=== PATIENT | female | born 1980 | race Caucasian/White ===

== ENCOUNTER 2016-11-20 20:07 | Emergency (ER) | payer OTHER ==
--- NOTE | 2016-11-20 21:47 | DIAGNOSTIC IMAGING REPORT ---
PROCEDURE: XR CHEST 2 VIEW INDICATION: SHORTNESS OF BREATH TECHNIQUE: PA and lateral views. The patient was shielded. COMPARISON: None. FINDINGS: Mild parenchymal scarring at the left lung base. Lungs are otherwise clear. Heart and mediastinum are normal. Thorax is normal. IMPRESSION: 1. Negative chest.
--- NOTE | 2016-11-20 22:14 | ED NURSING NOTES ---
Clinical Report - Nurses [facility] [place] [address] 11/20/2016 20:08 [id number] Triage time 20:12 Nov 20 2016. Acuity: LEVEL 4. Chief Complaint: (flu symptoms). 20:16 11/20/16. ANDRES COMA SCORE: Andres Coma Scale: 15- eyes open spontaneously (4); best verbal response- oriented x 4 (5); best motor response- obeys commands (6). --20:16 Rosalba Subramanian R.N. 20:16 11/20/16. BP: 120/76. HR: 124. RR: 20. O2 saturation: 97%. Temp: 97.9 F. --20:16 Rosalba Subramanian R.N. Weight: 58.9 kg stated. Height/Length: 63 inches Per Patient. BMI: 23. --20:10 Rosalba Subramanian R.N. Medications None. --20:14 Rosalba Subramanian R.N. Allergies Amoxicillin. --20:14 Rosalba Subramanian R.N. Medication/allergy information source: the patient. --20:16 Rosalba Subramanian R.N. History Arrived by private vehicle, and accompanied by family. Onset. (3 weeks). ( just not getting any better). PAST MEDICAL HX: Last normal menstrual period was 2 weeks ago. 5. Para 3. Abortions 2. Has not received seasonal influenza immunization. SOCIAL HX: Heavy tobacco smoker (cigarette)- 1 pack per day. Regular alcohol use. No drug use. No infectious disease exposure. ABUSE ASSESSMENT: No report of abuse. SELF HARM ASSESSMENT: A self harm assessment was performed. The patient answered "no" to the question "Have you recently felt down, depressed, or hopeless?", "Have you noticed less interest or pleasure in doing things?", "Do you have thoughts of harming or killing yourself?", "Are you here because you tried to hurt yourself?", "Have you ever tried to hurt yourself before today?", "Have you recently had thoughts about harming or killing others?" and "Do you have any dangerous items in your possession?". NUTRITIONAL RISK ASSESSMENT: The nutritional risk assessment revealed no deficiencies. FUNCTIONAL ASSESSMENT: Functional assessment: no impairments noted. LEARNING NEEDS ASSESSMENT: The learning needs assessment revealed no barriers. SKIN INTEGRITY ASSESSMENT: Skin integrity risk assessment completed. No skin integrity risk identified. --20:16 Rosalba Subramanian R.N. PROBLEMS: Lifestyle / Substance Problems. --20:15 Rosalba Subramanian R.N. ADDITIONAL SURGERIES: . Laparoscopy. Tonsillectomy. --20:15 Rosalba Subramanian R.N. Interventions ID band on patient. --20:16 Rosalba Subramanian R.N. PHYSICAL ASSESSMENT 20:20 11/20/16. GENERAL / NEURO / PSYCH: Alert. Oriented X 4. Appears in no acute distress. HEENT: Pupils equal, round and reactive to light. Mucous membranes are pink. RESPIRATORY: Breath sounds within normal limits. CVS: Pulses within normal limits. GI / : Abdomen soft. SKIN: Skin intact. Skin is warm and dry. Normal skin turgor. --20:38 Rosalba Subramanian R.N. NURSING PROGRESS NOTES 20:15 11/20/16. The initial plan of care for this patient includes an assessment with efforts to address the presence of pain. This plan of care was discussed with the patient. Patient gowned. Reassurance given. Patient identifiers checked. Call light placed in reach. Side rails up x 1. Bed placed in lowest position. Brakes of bed on. Care transferred. --20:33 Rosalba Subramanian R.N. 20:25 11/20/16. Patient ID band checked for patient name and birthdate: patient confirmed. Flu swab obtained by RN via nasal swab. Labeled in the presence of the patient and sent to lab. --20:33 Rosalba Subramanian R.N. 21:49 11/20/16. The patient is calm and resting quietly. Overall patient status is the same- she states feels the same. GI / : Denies nausea. SKIN: Skin is warm. Skin color within normal limits. --21:49 Rosalba Subramanian R.N. DISPOSITION / DISCHARGE 22:28 11/20/16. Condition at departure: improved and stable. The goals identified in the patient's plan of care were met. No learning barriers present. Reviewed medication(s) side effects, precautions, dosing and course information. Prescription(s) given to the patient. Reviewed fever care instructions. Reviewed referral to a primary care physician for followup and immunizations. Patient verbalized understanding. Written instructions provided in Maltese. The patient was discharged home and accompanied by family. She left the Emergency Department ambulatory and via private vehicle. Family member driving. FALL RISK ASSESSMENT: Fall risk assessment completed. No fall risk identified. --22:28 Rosalba Subramanian R.N. 22:28 11/20/16. BP: 120/70. HR: 88. RR: 18. O2 saturation: 100%. Temp: 98.2 F. Pain level now 0/10. --22:28 Rosalba Subramanian R.N. Departure time: 22:28 Nov 20 2016. --22:28 Rosalba Subramanian R.N. Locked/Released at 11/20/2016 22:28 by Rosalba Subramanian R.N.
--- NOTE | 2016-11-20 22:14 | ED CLINICAL REPORT ---
Clinical Report - Physicians/Mid Levels [facility] [address] [place] [address] 11/20/2016 20:08 Patient: ALANA DIANA Time Seen: 20:29. Arrived- By private vehicle. Historian- patient. CPT: ER phys charges level 3 (#[id number]). HISTORY OF PRESENT ILLNESS Chief Complaint: COUGH and "FLU". This started several weeks ago; Last normal menstrual period was 2 weeks ago. 5. Para 3. Abortions 2. Has not received seasonal influenza immunization. and is still present. The illness is described as moderate. The patient has had a cough. She has had moderate amounts of yellow, green sputum. No fever, muscle aches, chills, sore throat or hoarseness. No nasal congestion or sinus drainage. Additional history - No known contact with a sick individual. Similar symptoms previously: None. Recent medical care: Not recently seen/assessed. REVIEW OF SYSTEMS No headache, nausea, vomiting, diarrhea or abdominal pain. No hay fever, pedal edema, calf pain, difficulty with urination or skin rash. No joint pain. Denies current . All systems otherwise negative, except as recorded above. PAST HISTORY Last normal menstrual period was 2 weeks ago. 5. Para 3. Abortions 2. Has not received seasonal influenza immunization. ADDITIONAL SURGERIES: . Laparoscopy. Tonsillectomy. Medications: None. Allergies: Amoxicillin. SOCIAL HISTORY Heavy tobacco smoker (cigarette)- 1 pack per day. Regular alcohol use. No drug use. ADDITIONAL NOTES The nursing notes have been reviewed. PHYSICAL EXAM Vital Signs: 11/20/2016 20:16 BP: 120/76. HR: 124. RR: 20. O2 saturation: 97%. Temp: 97.9 F. Appearance: Alert. No acute distress. Eyes: Pupils equal, round and reactive to light. Eyes normal inspection. ENT: Ears normal. Nose normal. Pharynx normal. Uvula midline. Neck: Normal inspection. Neck supple. CVS: Normal heart rate and rhythm. Heart sounds normal. Pulses normal. Respiratory: No respiratory distress. Breath sounds normal. Back: Normal inspection. Skin: Skin warm. Normal skin color. No rash. Normal skin turgor. Extremities: Extremities exhibit normal ROM. No calf tenderness. No lower extremity edema. Neuro: Oriented X 3. No motor deficit. No sensory deficit. LABS, X-RAYS, AND EKG Chest X-ray: Normal Chest X-Ray. Laboratory Tests: Rapid Influenza Screen: (DOUG: 11/20/2016 20:15) ( MsgRcvd 11/20/2016 20:51) Final results SPECIMEN DESCRIPTION: [employer] Test Result Flag Units (Reference) RAPID INFLUENZA SCREEN DATE: 11/20/16 INFLUENZA A: NEGATIVE SCREEN FOR INFLUENZA A INFLUENZA B: NEGATIVE SCREEN FOR INFLUENZA B . PROGRESS AND PROCEDURES Patient/family counseled. Disposition: Discharged. Condition: stable. CLINICAL IMPRESSION Acute bacterial mucopurulent bronchitis. INSTRUCTIONS No strenuous activity. Rest. Drink plenty of fluids. Do not smoke. Warnings: Further evaluation is necessary. GENERAL WARNINGS: Return or contact your physician immediately if your condition worsens or changes unexpectedly, if not improving as expected, or if other problems arise. Prescription Medications: Albuterol HFA oral inhaler: inhale 2 puffs via spacer every 4 hours as needed for difficulty breathing, until symptoms improve. Dispense one (1) unit. No refill. Zithromax 250 mg tablets: take 2 orally today, followed by 1 daily for the next 4 days. No refills. Substitution is permissible. Follow-up: Follow up with your doctor in one week. Call for the next available appointment. Understanding of the discharge instructions verbalized by patient. (Electronically signed by Juan Carlos De Leon MD 11/23/2016 7:53)
--- NOTE | 2016-11-20 22:14 | ED ORDER SUMMARY ---
..... Patient: ALANA DIANA OrderSheet [facility] VisitID: [id number] [address] [place] [address] 35y, F Registration Date/Time: 11/20/2016 ORDER SHEET Weight: 58.9 kg (stated) Allergies: Amoxicillin GENERAL ORDERS: Rapid Influenza Screen (Nasal Pharyngeal) (MEAL MILLER) Urgent (20:18 11/20/2016 Franklin ORO) (20:32 Arianne R.N.) Chest 2V Urgent (21:01 11/20/2016 Chetan ORO) (Ack 21:09 Isac Furnace Utility Operator) (21:24 Too Christian) MEDICATION ORDERS: IV FLUIDS: ORDER SHEET NOTES: [Electronically signed by Rosalba Subramanian R.N. (22:28 11/20/2016)] [Electronically signed by Juan Carlos De Leon MD (07:53 11/23/2016)] [Electronically locked/signed by Rosalba Subramanian R.N. (22:28 11/20/2016)]
--- NOTE | 2016-11-20 22:14 | ED CLINICAL REPORT ---
Clinical Report - Physicians/Mid Levels [facility] [address] [place] [address] 11/20/2016 20:08 Patient: ALANA DIANA Time Seen: 20:29. Arrived- By private vehicle. Historian- patient. CPT: ER phys charges level 3 (#[id number]). HISTORY OF PRESENT ILLNESS Chief Complaint: COUGH and "FLU". This started several weeks ago; Last normal menstrual period was 2 weeks ago. 5. Para 3. Abortions 2. Has not received seasonal influenza immunization. and is still present. The illness is described as moderate. The patient has had a cough. She has had moderate amounts of yellow, green sputum. No fever, muscle aches, chills, sore throat or hoarseness. No nasal congestion or sinus drainage. Additional history - No known contact with a sick individual. Similar symptoms previously: None. Recent medical care: Not recently seen/assessed. REVIEW OF SYSTEMS No headache, nausea, vomiting, diarrhea or abdominal pain. No hay fever, pedal edema, calf pain, difficulty with urination or skin rash. No joint pain. Denies current . All systems otherwise negative, except as recorded above. PAST HISTORY Last normal menstrual period was 2 weeks ago. 5. Para 3. Abortions 2. Has not received seasonal influenza immunization. ADDITIONAL SURGERIES: . Laparoscopy. Tonsillectomy. Medications: None. Allergies: Amoxicillin. SOCIAL HISTORY Heavy tobacco smoker (cigarette)- 1 pack per day. Regular alcohol use. No drug use. ADDITIONAL NOTES The nursing notes have been reviewed. PHYSICAL EXAM Vital Signs: 11/20/2016 20:16 BP: 120/76. HR: 124. RR: 20. O2 saturation: 97%. Temp: 97.9 F. Appearance: Alert. No acute distress. Eyes: Pupils equal, round and reactive to light. Eyes normal inspection. ENT: Ears normal. Nose normal. Pharynx normal. Uvula midline. Neck: Normal inspection. Neck supple. CVS: Normal heart rate and rhythm. Heart sounds normal. Pulses normal. Respiratory: No respiratory distress. Breath sounds normal. Back: Normal inspection. Skin: Skin warm. Normal skin color. No rash. Normal skin turgor. Extremities: Extremities exhibit normal ROM. No calf tenderness. No lower extremity edema. Neuro: Oriented X 3. No motor deficit. No sensory deficit. LABS, X-RAYS, AND EKG Chest X-ray: Normal Chest X-Ray. Laboratory Tests: Rapid Influenza Screen: (DOUG: 11/20/2016 20:15) ( MsgRcvd 11/20/2016 20:51) Final results SPECIMEN DESCRIPTION: CV RN Test Result Flag Units (Reference) RAPID INFLUENZA SCREEN DATE: 11/20/16 INFLUENZA A: NEGATIVE SCREEN FOR INFLUENZA A INFLUENZA B: NEGATIVE SCREEN FOR INFLUENZA B . PROGRESS AND PROCEDURES Patient/family counseled. Disposition: Discharged. Condition: stable. CLINICAL IMPRESSION Acute bacterial mucopurulent bronchitis. INSTRUCTIONS No strenuous activity. Rest. Drink plenty of fluids. Do not smoke. Warnings: Further evaluation is necessary. GENERAL WARNINGS: Return or contact your physician immediately if your condition worsens or changes unexpectedly, if not improving as expected, or if other problems arise. Prescription Medications: Albuterol HFA oral inhaler: inhale 2 puffs via spacer every 4 hours as needed for difficulty breathing, until symptoms improve. Dispense one (1) unit. No refill. Zithromax 250 mg tablets: take 2 orally today, followed by 1 daily for the next 4 days. No refills. Substitution is permissible. Follow-up: Follow up with your doctor in one week. Call for the next available appointment. Understanding of the discharge instructions verbalized by patient. (Electronically signed by Juan Carlos De Leon MD 11/23/2016 7:53)
--- NOTE | 2016-11-20 22:14 | ED ORDER SUMMARY ---
..... Patient: ALANA DIANA OrderSheet [facility] VisitID: [id number] [address] [place] [address] 35y, F Registration Date/Time: 11/20/2016 ORDER SHEET Weight: 58.9 kg (stated) Allergies: Amoxicillin GENERAL ORDERS: Rapid Influenza Screen (Nasal Pharyngeal) (PLATE GLASS INSTALLER) Urgent (20:18 11/20/2016 Franklin ORO) (20:32 Arianne R.N.) Chest 2V Urgent (21:01 11/20/2016 Chetan ORO) (Ack 21:09 Isac Assistant Shift Supervisor) (21:24 Too Christian) MEDICATION ORDERS: IV FLUIDS: ORDER SHEET NOTES: [Electronically signed by Rosalba Subramanian R.N. (22:28 11/20/2016)] [Electronically signed by Juan Carlos De Leon MD (07:53 11/23/2016)] [Electronically locked/signed by Rosalba Subramanian R.N. (22:28 11/20/2016)]
--- NOTE | 2016-11-23 07:53 | ED MAR SUMMARY ---
..... Medication Administration Record [facility] [address] [place], [place] [id number] Patient: ALANA DIANA Visit ID: [id number] 35y, F Weight: 58.9 kg Height/Length: 63 in BMI: 23 ALLERGIES: Amoxicillin
--- NOTE | 2016-11-23 07:53 | ED MED RECONCILIATION SUMMARY ---
Patient: ALANA DIANA Medication Reconciliation Report [facility] VisitID: [id number] [address] [place] [address] 35y, F Registration Date/Time: 11/20/2016 Weight: 58.9 kg Height/Length: 63 in. BMI: 23.0 ALLERGIES: Amoxicillin The patient's Home Medications are listed below: NONE. The source(s) of the original Home Medication information: patient The following Medications were given to the patient in the Emergency Department: None. The following Medications were prescribed to the patient: Albuterol HFA oral inhaler: inhale 2 puffs via spacer every 4 hours as needed for difficulty breathing, until symptoms improve. Dispense one (1) unit. No refill. -- Juan Carlos De Leon MD Zithromax 250 mg tablets: take 2 orally today, followed by 1 daily for the next 4 days. No refills. Substitution is permissible. -- Juan Carlos De Leon MD
--- NOTE | 2016-11-23 07:53 | ED DISCHARGE INSTRUCTIONS ---
Patient: ALANA DIANA General Instructions [facility] VisitID: [id number] [place] [address] 35y, F Registration Date/Time: 11/20/2016 INSTRUCTIONS No strenuous activity. Rest. Drink plenty of fluids. Do not smoke. Warnings: Further evaluation is necessary. GENERAL WARNINGS: Return or contact your physician immediately if your condition worsens or changes unexpectedly, if not improving as expected, or if other problems arise. Prescription Medications: Albuterol HFA oral inhaler: inhale 2 puffs via spacer every 4 hours as needed for difficulty breathing, until symptoms improve. Dispense one (1) unit. No refill. Zithromax 250 mg tablets: take 2 orally today, followed by 1 daily for the next 4 days. No refills. Substitution is permissible. Follow-up: Follow up with your doctor in one week. Call for the next available appointment. Understanding of the discharge instructions verbalized by patient. ADDITIONAL INFORMATION Bronchitis (Adult: Abx Tx) BRONCHITIS is an infection of the air passages (bronchial tubes). It often occurs during the common cold. Symptoms include cough with mucus (phlegm) and low-grade fever. Bronchitis usually lasts 7-14 days. Mild cases can be treated with simple home remedies. More severe infection is treated with an antibiotic. Home Care: If symptoms are severe, rest at home for the first 2-3 days. When you resume activity, don't let yourself get too tired. Do not smoke. Avoid being exposed to the smoke of others. You may use acetaminophen (Tylenol) or ibuprofen (Motrin, Advil) to control fever or pain, unless another medicine was prescribed for this. [NOTE: If you have chronic liver or kidney disease or ever had a stomach ulcer or GI bleeding, talk with your doctor before using these medicines.] Your appetite may be poor, so a light diet is fine. Avoid dehydration by drinking 6-8 glasses of fluids per day (water, soft, drinks, juices, tea, soup, etc.). Extra fluids will help loosen secretions in the lungs. Vlhe-qfe-ncwnqjf cough medicines that containdextromethorphan(such as Robitussin DM) and decongestants (Actifed or Sudafed) may help relieve cough and congestion. [NOTE: Do not use decongestants if you have high blood pressure.] Finish all antibiotic medicine, even if you are feeling better after only a few days. Follow Up with your doctor or as directed if you dont start to feel better after three days. [NOTE: If you are age 65 or older, or if you have chronic asthma or COPD, we recommend a PNEUMOCOCCAL VACCINATION every five years and a yearly INFLUENZAVACCINATION (FLU-SHOT) every . Ask your doctor about this. If you had an X-ray, a radiologist will review it. You will be notified of any new findings that may affect your care.] Get Prompt Medical Attention if any of the following occur: Fever over 100.4F (38.0C) for more than three days Trouble breathing, wheezing or pain with breathing Coughing up blood or increased amounts of colored sputum Weakness, drowsiness, headache, facial pain, ear pain or a stiff neck Albuterol Sulfate Pressurized inhalation, suspension What is this medicine? ALBUTEROL (al BYOO ter ole) is a bronchodilator. It helps open up the airways in your lungs to make it easier to breathe. This medicine is used to treat and to prevent bronchospasm. How should I use this medicine? This medicine is for inhalation through the mouth. Follow the directions on your prescription label. Take your medicine at regular intervals. Do not use more often than directed. Make sure that you are using your inhaler correctly. Ask you doctor or health care provider if you have any questions. Talk to your train crew member regarding the use of this medicine in children. Special care may be needed. What side effects may I notice from receiving this medicine? Side effects that you should report to your doctor or health urgent care nurse practitioner as soon as possible: allergic reactions like skin rash, itching or hives, swelling of the face, lips, or tongue breathing problems chest pain feeling faint or lightheaded, falls high blood pressure irregular heartbeat fever muscle cramps or weakness pain, tingling, numbness in the hands or feet vomiting Side effects that usually do not require medical attention (report to your doctor or health urgent care nurse practitioner if they continue or are bothersome): cough difficulty sleeping headache nervousness or trembling stomach upset stuffy or runny nose throat irritation unusual taste What may interact with this medicine? anti-infectives like chloroquine and pentamidine caffeine cisapride diuretics medicines for colds medicines for depression or for emotional or psychotic conditions medicines for weight loss including some herbal products methadone some antibiotics like clarithromycin, erythromycin, levofloxacin, and linezolid some heart medicines steroid hormones like dexamethasone, cortisone, hydrocortisone theophylline thyroid hormones What if I miss a dose? If you miss a dose, use it as soon as you can. If it is almost time for your next dose, use only that dose. Do not use double or extra doses. Where should I keep my medicine? Keep out of the reach of children. Store at room temperature between 15 and 30 degrees C (59 and 86 degrees F). The contents are under pressure and may burst when exposed to heat or flame. Do not freeze. This medicine does not work as well if it is too cold. Throw away any unused medicine after the expiration date. Inhalers need to be thrown away after the labeled number of puffs have been used or by the expiration date; whichever comes first. Ventolin HFA should be thrown away 12 months after removing from foil pouch. Check the instructions that come with your medicine. What should I tell my health care provider before I take this medicine? They need to know if you have any of the following conditions: diabetes heart disease or irregular heartbeat high blood pressure pheochromocytoma seizures thyroid disease an unusual or allergic reaction to albuterol, levalbuterol, sulfites, other medicines, foods, dyes, or preservatives or trying to get breast-feeding What should I watch for while using this medicine? Tell your doctor or health urgent care nurse practitioner if your symptoms do not improve. Do not use extra albuterol. If your asthma or bronchitis gets worse while you are using this medicine, call your doctor right away. If your mouth gets dry try chewing sugarless gum or sucking hard candy. Drink water as directed. You have been given the following additional information: Bronchitis, Antiobiotic Treatment (Adult) Albuterol Sulfate Pressurized inhalation, suspension No strenuous activity. Rest. (Electronically signed by Juan Carlos De Leon MD 11/23/2016 7:53)
--- NOTE | 2016-11-23 07:53 | ED MAR SUMMARY ---
..... Medication Administration Record [facility] [address] [place], [place] [id number] Patient: ALANA DIANA Visit ID: [id number] 35y, F Weight: 58.9 kg Height/Length: 63 in BMI: 23 ALLERGIES: Amoxicillin
--- NOTE | 2016-11-23 07:53 | ED MED RECONCILIATION SUMMARY ---
Patient: ALANA DIANA Medication Reconciliation Report [facility] VisitID: [id number] [address] [place] [address] 35y, F Registration Date/Time: 11/20/2016 Weight: 58.9 kg Height/Length: 63 in. BMI: 23.0 ALLERGIES: Amoxicillin The patient's Home Medications are listed below: NONE. The source(s) of the original Home Medication information: patient The following Medications were given to the patient in the Emergency Department: None. The following Medications were prescribed to the patient: Albuterol HFA oral inhaler: inhale 2 puffs via spacer every 4 hours as needed for difficulty breathing, until symptoms improve. Dispense one (1) unit. No refill. -- Juan Carlos De Leon MD Zithromax 250 mg tablets: take 2 orally today, followed by 1 daily for the next 4 days. No refills. Substitution is permissible. -- Juan Carlos De Leon MD
--- NOTE | 2016-11-23 07:53 | ED DISCHARGE INSTRUCTIONS ---
Patient: ALANA DAINA General Instructions [facility] VisitID: [id number] [place] [address] 35y, F Registration Date/Time: 11/20/2016 INSTRUCTIONS No strenuous activity. Rest. Drink plenty of fluids. Do not smoke. Warnings: Further evaluation is necessary. GENERAL WARNINGS: Return or contact your physician immediately if your condition worsens or changes unexpectedly, if not improving as expected, or if other problems arise. Prescription Medications: Albuterol HFA oral inhaler: inhale 2 puffs via spacer every 4 hours as needed for difficulty breathing, until symptoms improve. Dispense one (1) unit. No refill. Zithromax 250 mg tablets: take 2 orally today, followed by 1 daily for the next 4 days. No refills. Substitution is permissible. Follow-up: Follow up with your doctor in one week. Call for the next available appointment. Understanding of the discharge instructions verbalized by patient. ADDITIONAL INFORMATION Bronchitis (Adult: Abx Tx) BRONCHITIS is an infection of the air passages (bronchial tubes). It often occurs during the common cold. Symptoms include cough with mucus (phlegm) and low-grade fever. Bronchitis usually lasts 7-14 days. Mild cases can be treated with simple home remedies. More severe infection is treated with an antibiotic. Home Care: If symptoms are severe, rest at home for the first 2-3 days. When you resume activity, don't let yourself get too tired. Do not smoke. Avoid being exposed to the smoke of others. You may use acetaminophen (Tylenol) or ibuprofen (Motrin, Advil) to control fever or pain, unless another medicine was prescribed for this. [NOTE: If you have chronic liver or kidney disease or ever had a stomach ulcer or GI bleeding, talk with your doctor before using these medicines.] Your appetite may be poor, so a light diet is fine. Avoid dehydration by drinking 6-8 glasses of fluids per day (water, soft, drinks, juices, tea, soup, etc.). Extra fluids will help loosen secretions in the lungs. Ubye-jcg-hixtywy cough medicines that containdextromethorphan(such as Robitussin DM) and decongestants (Actifed or Sudafed) may help relieve cough and congestion. [NOTE: Do not use decongestants if you have high blood pressure.] Finish all antibiotic medicine, even if you are feeling better after only a few days. Follow Up with your doctor or as directed if you dont start to feel better after three days. [NOTE: If you are age 65 or older, or if you have chronic asthma or COPD, we recommend a PNEUMOCOCCAL VACCINATION every five years and a yearly INFLUENZAVACCINATION (FLU-SHOT) every . Ask your doctor about this. If you had an X-ray, a radiologist will review it. You will be notified of any new findings that may affect your care.] Get Prompt Medical Attention if any of the following occur: Fever over 100.4F (38.0C) for more than three days Trouble breathing, wheezing or pain with breathing Coughing up blood or increased amounts of colored sputum Weakness, drowsiness, headache, facial pain, ear pain or a stiff neck Albuterol Sulfate Pressurized inhalation, suspension What is this medicine? ALBUTEROL (al BYOO ter ole) is a bronchodilator. It helps open up the airways in your lungs to make it easier to breathe. This medicine is used to treat and to prevent bronchospasm. How should I use this medicine? This medicine is for inhalation through the mouth. Follow the directions on your prescription label. Take your medicine at regular intervals. Do not use more often than directed. Make sure that you are using your inhaler correctly. Ask you doctor or health care provider if you have any questions. Talk to your dispatch associate regarding the use of this medicine in children. Special care may be needed. What side effects may I notice from receiving this medicine? Side effects that you should report to your doctor or health lawn caretaker as soon as possible: allergic reactions like skin rash, itching or hives, swelling of the face, lips, or tongue breathing problems chest pain feeling faint or lightheaded, falls high blood pressure irregular heartbeat fever muscle cramps or weakness pain, tingling, numbness in the hands or feet vomiting Side effects that usually do not require medical attention (report to your doctor or health lawn caretaker if they continue or are bothersome): cough difficulty sleeping headache nervousness or trembling stomach upset stuffy or runny nose throat irritation unusual taste What may interact with this medicine? anti-infectives like chloroquine and pentamidine caffeine cisapride diuretics medicines for colds medicines for depression or for emotional or psychotic conditions medicines for weight loss including some herbal products methadone some antibiotics like clarithromycin, erythromycin, levofloxacin, and linezolid some heart medicines steroid hormones like dexamethasone, cortisone, hydrocortisone theophylline thyroid hormones What if I miss a dose? If you miss a dose, use it as soon as you can. If it is almost time for your next dose, use only that dose. Do not use double or extra doses. Where should I keep my medicine? Keep out of the reach of children. Store at room temperature between 15 and 30 degrees C (59 and 86 degrees F). The contents are under pressure and may burst when exposed to heat or flame. Do not freeze. This medicine does not work as well if it is too cold. Throw away any unused medicine after the expiration date. Inhalers need to be thrown away after the labeled number of puffs have been used or by the expiration date; whichever comes first. Ventolin HFA should be thrown away 12 months after removing from foil pouch. Check the instructions that come with your medicine. What should I tell my health care provider before I take this medicine? They need to know if you have any of the following conditions: diabetes heart disease or irregular heartbeat high blood pressure pheochromocytoma seizures thyroid disease an unusual or allergic reaction to albuterol, levalbuterol, sulfites, other medicines, foods, dyes, or preservatives or trying to get breast-feeding What should I watch for while using this medicine? Tell your doctor or health lawn caretaker if your symptoms do not improve. Do not use extra albuterol. If your asthma or bronchitis gets worse while you are using this medicine, call your doctor right away. If your mouth gets dry try chewing sugarless gum or sucking hard candy. Drink water as directed. You have been given the following additional information: Bronchitis, Antiobiotic Treatment (Adult) Albuterol Sulfate Pressurized inhalation, suspension No strenuous activity. Rest. (Electronically signed by Juan Carlos De Leon MD 11/23/2016 7:53)
== END 2016-11-20 22:28 | disposition home or self-care (01) ==
LOC: ED SRH 20:07
DX: J20.9 Acute bronchitis, unspecified (principal); B96.89 Other specified bacterial agents as the cause of diseases classified elsewhere; F17.210 Nicotine dependence, cigarettes, uncomplicated; Z88.0 Allergy status to penicillin
CPT/HCPCS: 91400

== ENCOUNTER 2017-02-16 19:43 | Emergency (ER) | payer OTHER ==
--- NOTE | 2017-02-16 21:23 | DIAGNOSTIC IMAGING REPORT ---
PROCEDURE: XR CHEST 2 VIEW INDICATION: CHEST PAIN TECHNIQUE: PA and lateral view. COMPARISON: Chest x-ray 11/20/2016 FINDINGS: Mild left basilar scarring with large left basilar bullae. Cardiovascular structures are normal. Bony thorax is unremarkable. No significant interval change. IMPRESSION: 1. No acute changes 2. Large left basilar bullae
--- NOTE | 2017-02-16 23:21 | DIAGNOSTIC IMAGING REPORT ---
PROCEDURE: CTA THORAX WITH CONTRAST INDICATION: CHEST PAIN TECHNIQUE: 84 ml of Isovue 370 was injected intravenously and axial images were obtained of the entire thorax with 3D sagittal and coronal MIP reconstructions. COMPARISON: Chest x-ray 02/16/2017. FINDINGS: No evidence of pulmonary emboli. 5 mm peripheral right middle lobe (image 79), 2 mm right lower lobe (image 68) and 3 mm left lower lobe nodules (image 88), indeterminate but likely post postinflammatory. Large left basilar bullae with adjacent scarring. No adenopathy or effusion. Normal thoracic aorta. Heart size is normal. Hepatic steatosis. Bones are unremarkable. IMPRESSION: 1. No evidence of pulmonary emboli 2. Large left basilar bullae with adjacent surgery 3. Hepatic steatosis 4. Results discussed with Dr. Lobo
--- NOTE | 2017-02-16 23:43 | ED CLINICAL REPORT ---
Clinical Report - Physicians/Mid Levels [facility] [address] [place] [address] 02/16/2017 19:43 Patient: ALANA DIANA Time Seen: 20:06 Feb 16 2017. Arrived- By private vehicle. HISTORY OF PRESENT ILLNESS Chief Complaint: CHEST PAIN. At its maximum, severity described as moderate. When seen in the E.D., severity described as moderate. Modifying factors. Not worsened by exertion. Not relieved by anything. It is described as located in the central chest area. No radiation. This started today Symptoms have been ongoing for the past 8 hours and is still present (unchanged). It was abrupt in onset and has been constant but is not gone now. Onset during rest. No nausea, vomiting, difficulty breathing or diaphoresis. (recent missed on methadone approximately 2 weeks ago. Reports wanting to become clean.). No additional chest pain. (Patient personal hemoptysis. Patient reports no unilateral leg swelling or recent trauma/surgery.). Similar symptoms previously: None. Recent medical care: The patient was seen recently in a clinic (Told to go to the emergency department however does not know why exactly). REVIEW OF SYSTEMS No fever, chills, pedal edema or calf pain. All systems otherwise negative, except as recorded above. PAST HISTORY See nurses notes. Denies the following risk factors for DVT/PE - history of DVT and pulmonary embolism, recent surgery, recent CT and congestive heart failure. Denies the following risk factors for DVT/PE - cancer, clotting disorder, estrogens, obesity and immobility. Denies the following risk factors for DVT/PE - advanced in age and vena cava filter. SOCIAL HISTORY Smoker- current status unknown. History of drug use. Is a recovering addict. No alcohol use. Is a local resident. PHYSICAL EXAM Appearance: Alert. Oriented X3. No acute distress. Eyes: Pupils equal, round and reactive to light. Eyes normal inspection. ENT: Ears normal. Nose normal. Pharynx normal. Neck: Normal inspection. Neck supple. CVS: Tachycardia. Heart sounds normal. Pulses normal. Rhythm normal. No decreased pulses. Respiratory: No respiratory distress. Breath sounds normal. Chest nontender. Abdomen: Soft and nontender. Bowel sounds normal. Skin: Skin warm and dry. Normal skin color. No rash. Normal skin turgor. Extremities: Extremities exhibit normal ROM. No lower extremity edema. Neuro: Oriented X 3. No motor deficit. No sensory deficit. LABS, X-RAYS, AND EKG EKG: Regular narrow-complex tachycardia (125). Sinus tachycardia. Normal P waves. Normal HARINDER. Normal QRS complex. Normal axis. Normal ST and T waves, QT and QTc. The study has been interpreted contemporaneously. The study has been independently viewed by me. The EKG appears to be a good tracing. Chest X-ray: (PROCEDURE: XR CHEST 2 VIEW INDICATION: CHEST PAIN TECHNIQUE: PA and lateral view. COMPARISON: Chest x-ray 11/20/2016 FINDINGS: Mild left basilar scarring with large left basilar bullae. Cardiovascular structures are normal. Bony thorax is unremarkable. No significant interval change. IMPRESSION: 1. No acute changes 2. Large left basilar bullae). Views: PA and lateral. The X-rays were independently viewed by me and interpreted by the radiologist. The X-rays were discussed with the radiologist (via pacs). Chest CT: (PROCEDURE: CTA THORAX WITH CONTRAST INDICATION: CHEST PAIN TECHNIQUE: 84 ml of Isovue 370 was injected intravenously and axial images were obtained of the entire thorax with 3D sagittal and coronal MIP reconstructions. COMPARISON: Chest x-ray 02/16/2017. FINDINGS: No evidence of pulmonary emboli. 5 mm peripheral right middle lobe (image 79), 2 mm right lower lobe (image 68) and 3 mm left lower lobe nodules (image 88), indeterminate but likely post postinflammatory. Large left basilar bullae with adjacent scarring. No adenopathy or effusion. Normal thoracic aorta. Heart size is normal. Hepatic steatosis. Bones are unremarkable. IMPRESSION: 1. No evidence of pulmonary emboli 2. Large left basilar bullae with adjacent surgery 3. Hepatic steatosis). Chest CT performed with contrast. The study was independently viewed by me and interpreted by the radiologist. The study was discussed with the radiologist (via phone and pacs). Lower Extremity Sonography: Negative exam. No compression abnormality noted. The exam was performed by a behavioral technician. The study was independently viewed by me, interpreted by the radiologist and discussed with the radiologist. Laboratory Tests: UA-Culture if indicated: (DOUG: 02/16/2017 21:00) ( [facility] 02/16/2017 22:11) Final results Test Result Flag Units (Reference) URINE COLOR YELLOW URINE APPEARANCE CLEAR URINE GLUCOSE NEGATIVE (NEGATIVE) URINE BILIRUBIN NEGATIVE (NEGATIVE) URINE KETONE 3+ (NEGATIVE) URINE SPECIFIC GRAVITY 1.020 (1.010-1.030) URINE PH 6.0 (5.0-8.0) URINE PROTEIN TRACE (NEGATIVE) URINE UROBILINOGEN 0.2 EU/dL (0.2-1.0) URINE NITRITE NEGATIVE (NEGATIVE) URINE BLOOD NEGATIVE (NEGATIVE) URINE LEUK ESTERASE NEGATIVE (NEGATIVE) URINE RBC NONE SEEN rbc/hpf (0-1) URINE WBC 0-1 wbc/hpf (0-1) URINE EPITHELIAL CELLS >15 EPI/hpf (0-5) URINE BACTERIA MODERATE (2+ TO 3+) (NONE SEEN) 2+ MUCOUSDIRTY CATCH URINE COMMENT CULT NOT INDICATED URINE CULTURES ARE SET-UP BASED ON THE FOLLOWING CRITERIA:POSITIVE NITRITEPOSITIVE LEUKOCYTE ESTERASEGREATER THAN 10 WHITE BLOOD CELLSMODERATE (2+) OR GREATER BACTERIA Urine: (DOUG: 02/16/2017 20:40) ( [facility] 02/16/2017 22:25) Final results Test Result Flag Units (Reference) URINE NEGATIVE CBC w Diff: (DOUG: 02/16/2017 20:14) ( [facility] 02/16/2017 20:40) Final results Test Result Flag Units (Reference) WHITE BLOOD COUNT 8.1 K/uL (4.5-11.5) RED BLOOD COUNT 3.73 L M/uL (4.00-5.20) HEMOGLOBIN 13.1 gm/dL (12.0-16.0) HEMATOCRIT 39.3 % (36.0-46.0) MEAN CELL VOLUME 105 H fL (80-100) MEAN CORPUSCULAR HGB 35 H pg (26-34) MEAN CORPUSCULAR HGB CONC 33 g/dL (31-37) RED CELL DISTRIBUTION WIDTH 16.1 H % (11.6-14.8) PLATELET COUNT 307 K/uL (150-400) NEUTROPHIL % 43.8 L % (50-75) LYMPH % 50.3 H % (25-40) MONO % 4.9 % (3-14) EOSINOPHIL % 0.4 % (0-4) BASOPHIL % 0.6 % (0-2) [id number]: (DOUG: 02/16/2017 20:14) ( [facility] 02/16/2017 21:11) Final results Test Result Flag Units (Reference) D-DIMER QUANTITATIVE 1.80 H ug/mLFEU (0.27-0.52) The primary value of this quantitative assay relates toits negative predictive value (i.e. exclusion) of pulmonaryembolism/deep vein thrombosis/DIC.Elevated levels of d-dimer may also occur with:, age, cancer, inflammation, liver disease,post-op, infection, hematoma, coronary disease, peripheralarteriopathy, bleeding disorders and thrombolytic treatment.Results should be correlated with other clinical andradiological data.Testing Methodology: Latex Immunoassay TSH: (DOUG: 02/16/2017 20:10) ( [facility] 02/16/2017 23:49) Final results Test Result Flag Units (Reference) THYROID STIMULATING HORMONE 0.981 uIU/mL (0.34-3.74) Urine Drug Screen: (DOUG: 02/16/2017 21:00) ( [facility] 02/16/2017 21:36) Final results Test Result Flag Units (Reference) AMPHETAMINE/METHAMPHETAMINE NEGATIVE (NEGATIVE) BARBITURATE NEGATIVE (NEGATIVE) BENZODIAZEPINE NEGATIVE (NEGATIVE) CANNABINOID NEGATIVE (NEGATIVE) COCAINE NEGATIVE (NEGATIVE) ECSTASY NEGATIVE (NEGATIVE) METHADONE NEGATIVE (NEGATIVE) OPIATE NEGATIVE (NEGATIVE) The urine drug screen is a qualitative screening test fordrug overdose and abuse. All screen results should beconsidered as presumptive.Drugs screened for are as follows:BenzodiazepinesCocaineAmphetamines/MetamphetaminesTHC (Tetrahydrocannabinol)OpiatesBarbituratesEcstasyMethadonePositive results are unconfirmed. For confirmation, notifythe lab for the specimen to be sent to the reference lab.All confirmations must be performed by a differentmethodology.The ingestion of natural herbal and plant productscontaining Ephedra/Ephedra metabolites can produce in urineone or more substances capable of cross reacting withamphetamine/methamphetamine immunoassays. These testsprovide a preliminary result only. A more specificalternative chemical method must be used to obtain aconfirmed analytical result. BNP: (DOUG: 02/16/2017 20:14) ( NcgRcvd 02/16/2017 21:16) Final results Test Result Flag Units (Reference) B-TYPE NATRIURETIC PEPTIDE 19.6 pg/ml (5-100) CHEM 13 PANEL: (DOUG: 02/16/2017 20:14) ( MsgRcvd 02/16/2017 21:24) Final results Test Result Flag Units (Reference) GLUCOSE 57 L mg/dL (70-110) BUN 9 mg/dL (7-18) CREATININE 0.6 mg/dL (0.6-1.3) Estimated GFR >60 mL/min Estimated GFR- >60 mL/min Note: Persistent reduction over 3 months in eGFR<60 mL/min/1.73 m2 defines CKD. Patients with eGFR values>=60 mL/min/1.73 m2 may also have CKD if evidence ofpersistent proteinuria. Additional information may be foundat [email or web address].org. SODIUM 148 H mmol/L (136-145) POTASSIUM 2.9 *L mmol/L (3.5-5.1) CRITICAL RESULTS CALLEDCalled to CARROLL CASTANEDA,ER 02/16/174Were 2 patient identifiers used? YWas the result read back? Y CHLORIDE 104 mmol/L (98-107) CARBON DIOXIDE 18 L mmol/L (21-32) CALCIUM 8.8 mg/dL (8.5-10.1) TOTAL PROTEIN 7.3 g/dL (6.4-8.2) ALBUMIN 3.7 g/dL (3.3-5.0) BILIRUBIN, TOTAL 1.1 H mg/dL (0.0-1.0) ALKALINE PHOSPHATASE 93 U/L (46-116) AST (SGOT) 73 H U/L (15-37) ALT (SGPT) 51 U/L (12-78) MAGNESIUM 1.8 mg/dL (1.8-2.4) CPK 33 U/L (24-260) TROPONIN I <0.05 ng/mL (0.00-1.5) TROPONIN REFERENCE RANGE:<0.1 NEGATIVE0.1-1.5 INDETERMINANT>1.5 POSITIVE . PROGRESS AND PROCEDURES Course of Care: the patient is a pleasant 36-year-old female presenting for evaluation of chest pain. Patient is noted to be tachycardic here in the emergency department. Because of the patient is a PE RC negative. Patient however is at significantly low risk that a normal d-dimer would mmake the likelihood of a pulmonary embolism extremely low. Had a discussion in regards to pulmonary embolism M.D. evaluation for this medical entity. Patient is agreeable to the treatment and plan. Other differential diagnosis includes pneumonia andacute myocardial infarction. Patient obese eyelid with laboratory studies including chest x-ray, EKG, and urinalysis. Fluids also be provided as there is likely a component of dehydration given the patient's recent cessation of methadone and likely not keeping up with adequate oral hydration. The patient's workup was remarkable for the findings above. Troponin is noted to be less than detectable range. Because of the patient's time course, no further evaluation for acute myocardial infarction is required here in the emergency department. Patient's d-dimer is noted to be elevated at 1.8. Because of this, an ultrasound and CT scan of the chest has been ordered after discussing with the patient the risks and benefits of the study. Tachycardia has significantly improved in emergency department. Patient states that she feels much better. The patient's work up was remarkable for the findings above. No acute findings noted on patient's CT scan of the chest. Ultrasound was also noted to be negative. Because of the patient's negative workup here in emergency department, do not feel patient needs. [facility] require further emergency department workup/evaluation. Patient's potassium is noted to be low at 2.9. It has been replaced here in the emergency department and will likely need supplementation as an outpatient basis however this does not need to be admitted to the hospital. o EKG changes noted to suggest low potassium requiring admission to the hospital. Discussed with patient workup here in the emergency department included diagnosis, home care, follow-up, and return precautions. QUESTIONS have been answered. The patient expressed understanding of these instructions and was agreeable to that. Prior to the patient's departure from the emergency department she was noted to be resting in bed and in no acute distress. Patient was noted to bestill slightly tachycardic. Offered patient more fluids here in the emergency department and a longer stay however patient states that she would like to go home at this time and feels comfortable doing so. I discussed with the patient my concerns for the elevated heart rate however patient states that she feels much better and would like to go home. Patient is nontoxic and did not feel I can keep the patient here in the emergency Department longer. I have offered the patientmonitoring in the emergency department and more IV fluids however patient declines at this time. 11:28 02/21/17. was able to contact patient today reports odd sensation in her legs still. otherwise feeling fine. states she has yet to make an appointment with her doctor. Offered her to contact us or return to the ED for any concerns. States she will make an appointment with her doctor but her insurance is giving her a difficult time. Disposition: Discharged. Condition: good. CLINICAL IMPRESSION Chest pain characterized as "pressure" .12 lead EKG performed. Acute urinary tract infection. Hypokalemia (acute). INSTRUCTIONS Warnings: GENERAL WARNINGS: Return or contact your physician immediately if your condition worsens or changes unexpectedly, if not improving as expected, or if other problems arise. SPECIFICALLY, return if you develop chest, neck, jaw, shoulder, arm, or back pain, difficulty breathing, a fluttering sensation in your chest, lightheadedness, fainting, excessive fatigue, or sudden sweating. Your Current Medications: STOP TAKING THE FOLLOWING MEDICATIONS: Methadone- stopped about 2 weeks ago *. Prescription Medications: Cephalexin 500 mg: take 1 capsule orally every 8 hours for 5 days. No refill. (disp 15 caps.) Potassium Chloride 20 mEq: take 1 orally every 12 hours - Dispense thirty (30) No refills. (take for 15 days.) Follow-up: Return to the emergency department as needed. Follow up with your doctor in three days. Reason for referral: recheck today's concerns. Summary of care provided to patient via paper. Screening today revealed the patient's blood pressure to be in the normal range. The patient should follow up with a primary care provider for blood pressure management. Understanding of the discharge instructions verbalized by patient. Follow-up with: Zechariah Briseno MD, Cardiology, , [facility] - Cardiology, [address] [address] [address], [place], [address] Follow up in three days. Reason for referral: recheck today's concerns. Summary of care provided to patient via paper. (Electronically signed by Giorgio Lobo Dr. 02/21/2017 11:28)
--- NOTE | 2017-02-16 23:44 | ED NURSING NOTES ---
Clinical Report - Nurses [facility] [address] [place] [address] 02/16/2017 19:43 Patient: ALANA DIANA TRIAGE Triage time 1944. Acuity: LEVEL 3. Chief Complaint: CHEST DISCOMFORT and ("feels like alot of weight sitting on my chest" this has been going on x 1-2 weeks.). --20:01 Ana Luisa Fu R.N. 19:45 02/16/17. BP: 124/86. HR: 135. RR: 22. O2 saturation: 98%. Temp: 98.5 F. Pain level now: 05/25. --20:01 Ana Luisa Fu R.N. Weight: 47.6 kg stated. Height/Length: 63 inches Per Patient. BMI: 18.6. --19:57 Ana Luisa Fu R.N. Medications Methadone- stopped about 2 weeks ago . --19:58 Ana Luisa Fu R.N. Allergies Amoxicillin. --19:58 Ana Luisa Fu R.N. History Arrived by private vehicle. Historian: patient. Accompanied by friend. Primary physician (luiza). The patient has had difficulty breathing, nausea and vomiting. Reports experiencing sweating episodes. She has had a cough productive of green sputum. PAST MEDICAL HX: Last normal menstrual period- September. SOCIAL HX: Light tobacco smoker (cigarette)- less than 1/2 a pack per day. Occasional alcohol use. No drug use. --20:01 Ana Luisa Fu R.N. ( Neighbor states pt has been depressed, and hasn't left house in 2 months. and has lost about 40# in 2 months). --20:05 Ana Luisa Fu R.N. PROBLEMS: Bronchitis. Gastritis. Urinary Calculi. Anemia. Leukocytosis. Lifestyle / Substance Problems. Problems. Ovarian Cyst. Dysfunctional Uterine Bleeding. Vaginal Bleeding. Endometriosis. Dysmenorrhea. --19:57 Tank, Ana Luisa, R.N. ADDITIONAL SURGERIES: . Laparoscopy. Tonsillectomy. --19:57 Ana Luisa Fu R.N. Interventions ID band on patient. To treatment room. --20:01 Ana Luisa Fu R.N. PHYSICAL ASSESSMENT 19:45. To room via wheelchair. Patient gowned. GENERAL / NEURO / PSYCH: Alert. Oriented X 4. Appears in pain and anxious. RESPIRATORY: Respirations not labored. Chest wall tenderness. CVS: Capillary refill less than 2 seconds. GI / : Abdomen soft. EXTREMITIES: ( pt has small amount of edema to rt ankle w slight redness). SKIN: Skin is warm and dry. --20:03 Ana Luisa Fu R.N. NURSING PROGRESS NOTES 19:45. Oxygen administered. vp digital marketing placed on patient. Patient gowned. Head of bed elevated. Reassurance given. Patient identifiers checked. Call light placed in reach. Side rails up. Bed placed in lowest position. Patient ready for evaluation- chart flagged. --20:02 Ana Luisa Fu R.N. EKG time: (2010). EKG was performed by a tech and shown to the ED physician. --20:11 Francine Gamino 20:25 02/16/2017 Site #1 started via IV in the left antecubital space with an 20g angiocath, with aseptic technique and good blood return; one attempt. Blood drawn: rainbow set. Labeled in the presence of the patient and sent to the lab. Saline lock flushed with 10 mL saline. --20:30 Ana Luisa Fu R.N. 20:26 02/16/2017 Started bag #1 1000 mL IV Fluids IV NS (Saline); at 1000 mL/hr over 1 hour(s) via site #1 via IV pump. IV patency established. IV site checked: no pain, redness, or swelling. IV flushed thoroughly pre- and post-medication administration. --20:31 Ana Luisa Fu R.N. 20:35. ( Pt ambulated to bathroom, steady on feet. UA obtained and sent to lab). --20:52 Ana Luisa Fu R.N. 20:55 02/16/17. Patient transported to radiology by wheelchair with tech. --20:55 Ana Luisa Fu R.N. 21:01 02/16/17. Patient returned from radiology by wheelchair with tech. --21:01 Ana Luisa Fu R.N. 21:24 02/16/17. ( Lab called with critical value of K+ = 2.9 ERMD notified). --21:24 Ana Luisa Fu R.N. 21:28 02/16/17. BP: 134/96. HR: 109. RR: 16. O2 saturation: 98%. --21:28 Francine Gamino 21:30 02/16/2017 IV Fluids IV NS Bag Change: bag #1 infused. Total amount infused: 1000. STARTED bag #2 (1000 mL) at 1000 mL/hr via IV pump. IV patency established. IV site checked: no pain, redness, or swelling. IV flushed thoroughly. --21:31 Ana Luisa Fu R.N. 22:20 02/16/2017 1000cc NS bag #3 * IV Fluids 500cc/hr --22:41 Ana Luisa Fu R.N. 22:20 02/16/2017 IV Fluids IV NS Bag Change: bag #2 infused. Total amount infused: 1000. STARTED bag #3 (1000 mL) at 500 mL/hr via IV pump. IV patency established. IV site checked: no pain, redness, or swelling. IV flushed thoroughly. --22:30 Ana Luisa Fu R.N. 22:29 02/16/2017 Tylenol (Acetaminophen) PO Tablets 650 mg given. Allergies verified and confirmed 5 rights. --22:39 Ana Luisa Fu R.N. 22:30 02/16/2017 Potassium Chloride (Potassium Chloride ER) PO Capsules 60 meq given. Allergies verified and confirmed 5 rights. --22:40 Ana Luisa Fu R.N. 22:29. Patient transported to CT by stretcher with tech. --22:40 Ana Luisa Fu R.N. Care transferred and report received (Ana Luisa, CARROLL). --22:48 Subhash Smith R.N. 23:46 02/16/2017 Started 1 gm of Ceftriaxone IVPB in bag #1 50 mL; over 20 minute(s) via site #1 via IV pump. Allergies verified and confirmed 5 rights. IV patency established. IV site checked: no pain, redness, or swelling. IV flushed thoroughly pre- and post-medication administration. --23:55 Sophia Mendez R.N. 00:04 02/17/2017 Tylenol PO Response: no adverse reaction. --00:04 Subhash Smith R.N. 00:04 02/17/2017 Potassium Chloride PO Response: no adverse reaction. --00:04 Subhash Smith R.N. 00:07 02/17/2017 Ceftriaxone IVPB Response: no adverse reaction. --00:07 Subhash Smith R.N. ( Pt resting in bed, awake, finished antibiotics, call placed to Pt's friend to come take Pt home. Pt denies needs,). --00:08 Subhash Smith R.N. ( Between myself and the Pt, her ride home has been called multiple times with no response. Pt has no other means of getting home tonight. She is ready for DC. Will continue to try to get ahold of Pt's friend.). --00:16 Subhash Smith R.N. ( Pt up to restroom, ride home has arrived.). --00:52 Subhash Smith R.N. 00:53 02/17/2017 1000cc NS bag #3 IV Fluids Discontinued: bag #3 infused upon discharge. Total amount infused: 1000 mL. IV patency established. IV site checked: no pain, redness, or swelling. IV flushed thoroughly. --00:53 Subhash Smith R.N. 00:54 02/17/2017 Site #1 removed upon discharge. Bandage applied. --00:59 Subhash Smith R.N. 21:15 02/16/17. BP: 134/96. HR: 106. --01:02 Subhash Smith R.N. 22:15 02/16/17. BP: 133/83. HR: 106. --01:03 Subhash Smith R.N. DISPOSITION / DISCHARGE Departure time: 00:58 Feb 17 2017. Condition at departure: improved and stable. The goals identified in the patient's plan of care were met. No learning barriers present. Discharge instructions provided and reviewed with the patient (friend). Reviewed medication(s) side effects, precautions, dosing and course information. Prescription(s) given to the patient. Reviewed referral to a primary care physician for followup. Patient and senior energy trader verbalized understanding. Written instructions provided in Lao. The patient was discharged by the physician. She was discharged home and accompanied by senior energy trader. She left the Emergency Department ambulatory and via private vehicle. Hospice Director driving. ( Pt dc'd in stable condition, ambulatory, VSS.). --00:59 Subhash Smith R.N. 00:53 02/17/17. BP: 130/90. HR: 110. RR: 16. O2 saturation: 95% on room air. Pain level now: 11/25. --00:59 Subhash Smith R.N. Locked/Released at 02/23/2017 13:06 by Subhash Smith R.N.
--- NOTE | 2017-02-16 23:44 | ED ORDER SUMMARY ---
..... Patient: ALANA DIANA OrderSheet [facility] VisitID: [id number] [place] [address] 36y, F Registration Date/Time: 02/16/2017 ORDER SHEET Weight: 47.6 kg (stated) Allergies: Amoxicillin GENERAL ORDERS: Chest 2V Urgent (20:00 02/16/2017 EKoroleva P.A.-C) (Ack 20:04 CHagerty ER Antenna Engineer) (21:01 DDean R.N.) Sports Photographer (Continuous) (20:00 02/16/2017 EKoroleva P.A.-C) (20:41 DDean R.N.) Cardiac Panel Stat (20:00 02/16/2017 EKoroleva P.A.-C) (Ack 20:04 CHagerty ER Antenna Engineer) (20:29 DDean R.N.) BNP Urgent (20:00 02/16/2017 EKoroleva P.A.-C) (Ack 20:04 CHagerty ER Antenna Engineer) (20:29 DDean R.N.) EKG - ER Stat (20:00 02/16/2017 EKoroleva P.A.-C) (Ack 20:04 CHagerty ER Antenna Engineer) (20:11 LMuller) Urine Drug Screen Urgent (20:06 02/16/2017 EKoroleva P.A.-C) (Ack 20:11 CHagerty ER Antenna Engineer) (20:52 DDean R.N.) UA-Culture if indicated Urgent (20:06 02/16/2017 EKoroleva P.A.-C) (Ack 20:11 CHagerty ER Antenna Engineer) (20:52 DDean R.N.) D-Dimer Urgent (20:26 02/16/2017 Vonnie Mclaughlin) (Ack 20:27 CHagerty ER Antenna Engineer) (20:29 DDean R.N.) CTA Thorax w Cont (No) (gfr . 60) Urgent (22:17 02/16/2017 Vonnie Mclaughlin) (Ack 22:20 CHagerty ER Antenna Engineer) (22:40 DDean R.N.) US Venous Bilat Urgent (22:18 02/16/2017 Vonnie Mclaughlin) (Ack 22:20 CHagerty ER Antenna Engineer) (23:34 Filomena) Urine Urgent (22:18 02/16/2017 Vonnie Mclaughlin) (Ack 22:20 CHagerty ER Antenna Engineer) (22:21 Bereniceerty ER Antenna Engineer) TSH Urgent (23:26 02/16/2017 Vonnie Mclaughlin) (Ack 23:30 Bereniceerty ER Antenna Engineer) (0:52 MCook R.N.) MEDICATION ORDERS: Tylenol PO 650 mg (NOW) (22:37 02/16/2017 DDean R.N. verbal order read back to Vonnie Mclaughlin) (22:39 DDean R.N.) Potassium Chloride PO 60 meq (NOW) (22:37 02/16/2017 DDean R.N. verbal order read back to Vonnie Mclaughlin) (22:40 DDean R.N.) - (IV bag #3 at 500cc hr x 2 hours) (22:38 02/16/2017 DDean R.N. verbal order read back to Vonnie Mclaughlin) (22:41 DDean R.N.) IV FLUIDS: IV NS : initial bolus 1000 mL (1000 mL/hr), then 1000 mL/hr for X1 (NOW); Earl (20:00 02/16/2017 EKoroleva P.A.-C) (Ack 20:03 DDean R.N.) (20:31 DDean R.N.) Ceftriaxone IV 1 gm/50mL (NOW) (23:39 02/16/2017 Vonnie Mclaughlin) (Ack 23:42 CBradburn R.N.) (23:55 CBradburn R.N.) ORDER SHEET NOTES: [Electronically signed by Giorgio Lobo Dr. (11:28 02/21/2017)] [Electronically signed by Subhash Smith R.N. (13:06 02/23/2017)] [Electronically locked/signed by Subhash Smith R.N. (13:06 02/23/2017)]
--- NOTE | 2017-02-16 23:44 | ED NURSING NOTES ---
Clinical Report - Nurses [facility] [address] [place] [address] 02/16/2017 19:43 Patient: ALANA DIANA TRIAGE Triage time 1944. Acuity: LEVEL 3. Chief Complaint: CHEST DISCOMFORT and ("feels like alot of weight sitting on my chest" this has been going on x 1-2 weeks.). --20:01 Ana Luisa Fu R.N. 19:45 02/16/17. BP: 124/86. HR: 135. RR: 22. O2 saturation: 98%. Temp: 98.5 F. Pain level now: 05/25. --20:01 Ana Luisa Fu R.N. Weight: 47.6 kg stated. Height/Length: 63 inches Per Patient. BMI: 18.6. --19:57 Ana Luisa Fu R.N. Medications Methadone- stopped about 2 weeks ago . --19:58 Ana Luisa Fu R.N. Allergies Amoxicillin. --19:58 Ana Luisa Fu R.N. History Arrived by private vehicle. Historian: patient. Accompanied by friend. Primary physician (luiza). The patient has had difficulty breathing, nausea and vomiting. Reports experiencing sweating episodes. She has had a cough productive of green sputum. PAST MEDICAL HX: Last normal menstrual period- September. SOCIAL HX: Light tobacco smoker (cigarette)- less than 1/2 a pack per day. Occasional alcohol use. No drug use. --20:01 Ana Luisa Fu R.N. ( Neighbor states pt has been depressed, and hasn't left house in 2 months. and has lost about 40# in 2 months). --20:05 Ana Luisa Fu R.N. PROBLEMS: Bronchitis. Gastritis. Urinary Calculi. Anemia. Leukocytosis. Lifestyle / Substance Problems. Problems. Ovarian Cyst. Dysfunctional Uterine Bleeding. Vaginal Bleeding. Endometriosis. Dysmenorrhea. --19:57 Tank, Ana Luisa, R.N. ADDITIONAL SURGERIES: . Laparoscopy. Tonsillectomy. --19:57 Ana Luisa Fu R.N. Interventions ID band on patient. To treatment room. --20:01 Ana Luisa Fu R.N. PHYSICAL ASSESSMENT 19:45. To room via wheelchair. Patient gowned. GENERAL / NEURO / PSYCH: Alert. Oriented X 4. Appears in pain and anxious. RESPIRATORY: Respirations not labored. Chest wall tenderness. CVS: Capillary refill less than 2 seconds. GI / : Abdomen soft. EXTREMITIES: ( pt has small amount of edema to rt ankle w slight redness). SKIN: Skin is warm and dry. --20:03 Ana Luisa Fu R.N. NURSING PROGRESS NOTES 19:45. Oxygen administered. electron gun assembler placed on patient. Patient gowned. Head of bed elevated. Reassurance given. Patient identifiers checked. Call light placed in reach. Side rails up. Bed placed in lowest position. Patient ready for evaluation- chart flagged. --20:02 Ana Luisa Fu R.N. EKG time: (2010). EKG was performed by a tech and shown to the ED physician. --20:11 Francine Gamino 20:25 02/16/2017 Site #1 started via IV in the left antecubital space with an 20g angiocath, with aseptic technique and good blood return; one attempt. Blood drawn: rainbow set. Labeled in the presence of the patient and sent to the lab. Saline lock flushed with 10 mL saline. --20:30 Ana Luisa Fu R.N. 20:26 02/16/2017 Started bag #1 1000 mL IV Fluids IV NS (Saline); at 1000 mL/hr over 1 hour(s) via site #1 via IV pump. IV patency established. IV site checked: no pain, redness, or swelling. IV flushed thoroughly pre- and post-medication administration. --20:31 Ana Luisa Fu R.N. 20:35. ( Pt ambulated to bathroom, steady on feet. UA obtained and sent to lab). --20:52 Ana Luisa Fu R.N. 20:55 02/16/17. Patient transported to radiology by wheelchair with tech. --20:55 Ana Luisa Fu R.N. 21:01 02/16/17. Patient returned from radiology by wheelchair with tech. --21:01 Ana Luisa Fu R.N. 21:24 02/16/17. ( Lab called with critical value of K+ = 2.9 ERMD notified). --21:24 Ana Luisa Fu R.N. 21:28 02/16/17. BP: 134/96. HR: 109. RR: 16. O2 saturation: 98%. --21:28 Francine Gamino 21:30 02/16/2017 IV Fluids IV NS Bag Change: bag #1 infused. Total amount infused: 1000. STARTED bag #2 (1000 mL) at 1000 mL/hr via IV pump. IV patency established. IV site checked: no pain, redness, or swelling. IV flushed thoroughly. --21:31 Ana Luisa Fu R.N. 22:20 02/16/2017 1000cc NS bag #3 * IV Fluids 500cc/hr --22:41 Ana Luisa Fu R.N. 22:20 02/16/2017 IV Fluids IV NS Bag Change: bag #2 infused. Total amount infused: 1000. STARTED bag #3 (1000 mL) at 500 mL/hr via IV pump. IV patency established. IV site checked: no pain, redness, or swelling. IV flushed thoroughly. --22:30 Ana Luisa Fu R.N. 22:29 02/16/2017 Tylenol (Acetaminophen) PO Tablets 650 mg given. Allergies verified and confirmed 5 rights. --22:39 Ana Luisa Fu R.N. 22:30 02/16/2017 Potassium Chloride (Potassium Chloride ER) PO Capsules 60 meq given. Allergies verified and confirmed 5 rights. --22:40 Ana Luisa Fu R.N. 22:29. Patient transported to CT by stretcher with tech. --22:40 Ana Luisa Fu R.N. Care transferred and report received (Ana Luisa, CARROLL). --22:48 Subhash Smith R.N. 23:46 02/16/2017 Started 1 gm of Ceftriaxone IVPB in bag #1 50 mL; over 20 minute(s) via site #1 via IV pump. Allergies verified and confirmed 5 rights. IV patency established. IV site checked: no pain, redness, or swelling. IV flushed thoroughly pre- and post-medication administration. --23:55 Sophia Mendez R.N. 00:04 02/17/2017 Tylenol PO Response: no adverse reaction. --00:04 Subhash Smith R.N. 00:04 02/17/2017 Potassium Chloride PO Response: no adverse reaction. --00:04 Subhash Smith R.N. 00:07 02/17/2017 Ceftriaxone IVPB Response: no adverse reaction. --00:07 Subhash Smith R.N. ( Pt resting in bed, awake, finished antibiotics, call placed to Pt's friend to come take Pt home. Pt denies needs,). --00:08 Subhash Smith R.N. ( Between myself and the Pt, her ride home has been called multiple times with no response. Pt has no other means of getting home tonight. She is ready for DC. Will continue to try to get ahold of Pt's friend.). --00:16 Subhash Smith R.N. ( Pt up to restroom, ride home has arrived.). --00:52 Subhash Smith R.N. 00:53 02/17/2017 1000cc NS bag #3 IV Fluids Discontinued: bag #3 infused upon discharge. Total amount infused: 1000 mL. IV patency established. IV site checked: no pain, redness, or swelling. IV flushed thoroughly. --00:53 Subhash Smith R.N. 00:54 02/17/2017 Site #1 removed upon discharge. Bandage applied. --00:59 Subhash Smith R.N. 21:15 02/16/17. BP: 134/96. HR: 106. --01:02 Subhash Smith R.N. 22:15 02/16/17. BP: 133/83. HR: 106. --01:03 Subhash Smith R.N. DISPOSITION / DISCHARGE Departure time: 00:58 Feb 17 2017. Condition at departure: improved and stable. The goals identified in the patient's plan of care were met. No learning barriers present. Discharge instructions provided and reviewed with the patient (friend). Reviewed medication(s) side effects, precautions, dosing and course information. Prescription(s) given to the patient. Reviewed referral to a primary care physician for followup. Patient and corporate job titles verbalized understanding. Written instructions provided in Portuguese. The patient was discharged by the physician. She was discharged home and accompanied by corporate job titles. She left the Emergency Department ambulatory and via private vehicle. Cloth Winding Supervisor driving. ( Pt dc'd in stable condition, ambulatory, VSS.). --00:59 Subhash Smith R.N. 00:53 02/17/17. BP: 130/90. HR: 110. RR: 16. O2 saturation: 95% on room air. Pain level now: 11/25. --00:59 Subhash Smith R.N. Locked/Released at 02/23/2017 13:06 by Subhash Smith R.N.
--- NOTE | 2017-02-16 23:44 | ED ORDER SUMMARY ---
..... Patient: ALANA DIANA OrderSheet [facility] VisitID: [id number] [place] [address] 36y, F Registration Date/Time: 02/16/2017 ORDER SHEET Weight: 47.6 kg (stated) Allergies: Amoxicillin GENERAL ORDERS: Chest 2V Urgent (20:00 02/16/2017 EKoroleva P.A.-C) (Ack 20:04 CHagerty ER Motion Picture Printer) (21:01 DDean R.N.) Cook Italian Style Food (Continuous) (20:00 02/16/2017 EKoroleva P.A.-C) (20:41 DDean R.N.) Cardiac Panel Stat (20:00 02/16/2017 EKoroleva P.A.-C) (Ack 20:04 CHagerty ER Motion Picture Printer) (20:29 DDean R.N.) BNP Urgent (20:00 02/16/2017 EKoroleva P.A.-C) (Ack 20:04 CHagerty ER Motion Picture Printer) (20:29 DDean R.N.) EKG - ER Stat (20:00 02/16/2017 EKoroleva P.A.-C) (Ack 20:04 CHagerty ER Motion Picture Printer) (20:11 LMuller) Urine Drug Screen Urgent (20:06 02/16/2017 EKoroleva P.A.-C) (Ack 20:11 CHagerty ER Motion Picture Printer) (20:52 DDean R.N.) UA-Culture if indicated Urgent (20:06 02/16/2017 EKoroleva P.A.-C) (Ack 20:11 CHagerty ER Motion Picture Printer) (20:52 DDean R.N.) D-Dimer Urgent (20:26 02/16/2017 Vonnie Mclaughlin) (Ack 20:27 CHagerty ER Motion Picture Printer) (20:29 DDean R.N.) CTA Thorax w Cont (No) (gfr . 60) Urgent (22:17 02/16/2017 Vonnie Mclaughlin) (Ack 22:20 CHagerty ER Motion Picture Printer) (22:40 DDean R.N.) US Venous Bilat Urgent (22:18 02/16/2017 Vonnie Mclaughlin) (Ack 22:20 CHagerty ER Motion Picture Printer) (23:34 Filomena) Urine Urgent (22:18 02/16/2017 Vonnie Mclaughlin) (Ack 22:20 CHagerty ER Motion Picture Printer) (22:21 Bereniceerty ER Motion Picture Printer) TSH Urgent (23:26 02/16/2017 Vonnie Mclaughlin) (Ack 23:30 Bereniceerty ER Motion Picture Printer) (0:52 MCook R.N.) MEDICATION ORDERS: Tylenol PO 650 mg (NOW) (22:37 02/16/2017 DDean R.N. verbal order read back to Vonnie Mclaughlin) (22:39 DDean R.N.) Potassium Chloride PO 60 meq (NOW) (22:37 02/16/2017 DDean R.N. verbal order read back to Vonnie Mclaughlin) (22:40 DDean R.N.) - (IV bag #3 at 500cc hr x 2 hours) (22:38 02/16/2017 DDean R.N. verbal order read back to Vonnie Mclaughlin) (22:41 DDean R.N.) IV FLUIDS: IV NS : initial bolus 1000 mL (1000 mL/hr), then 1000 mL/hr for X1 (NOW); Earl (20:00 02/16/2017 EKoroleva P.A.-C) (Ack 20:03 DDean R.N.) (20:31 DDean R.N.) Ceftriaxone IV 1 gm/50mL (NOW) (23:39 02/16/2017 Vonnie Mclaughlin) (Ack 23:42 CBradburn R.N.) (23:55 CBradburn R.N.) ORDER SHEET NOTES: [Electronically signed by Giorgio Lobo Dr. (11:28 02/21/2017)] [Electronically signed by Subhash Smith R.N. (13:06 02/23/2017)] [Electronically locked/signed by Subhash Smith R.N. (13:06 02/23/2017)]
--- NOTE | 2017-02-17 00:13 | DIAGNOSTIC IMAGING REPORT ---
PROCEDURE: US VENOUS - BILATERAL EXT INDICATION: LEG SWELLING + D-DIMER TECHNIQUE: Color Doppler duplex imaging of the deep and superficial venous system without and with compression. COMPARISON: None. FINDINGS: RIGHT LOWER EXTREMITY: Deep and superficial venous system of the right lower extremity is within normal limits. There is no evidence of deep vein thrombosis or superficial thrombophlebitis. LEFT LOWER EXTREMITY: Deep and superficial venous system of the left lower extremity is within normal limits. There is no evidence of deep vein thrombosis or superficial thrombophlebitis. IMPRESSION: 1. Negative venous ultrasound of the bilateral lower extremities.
--- NOTE | 2017-02-23 13:06 | ED DISCHARGE INSTRUCTIONS ---
Patient: ALANA DIANA General Instructions [facility] VisitID: [id number] [place] [address] 36y, F Registration Date/Time: 02/16/2017 Chest pain characterized as "pressure" .12 lead EKG performed. Acute urinary tract infection. Hypokalemia (acute). INSTRUCTIONS Warnings: GENERAL WARNINGS: Return or contact your physician immediately if your condition worsens or changes unexpectedly, if not improving as expected, or if other problems arise. SPECIFICALLY, return if you develop chest, neck, jaw, shoulder, arm, or back pain, difficulty breathing, a fluttering sensation in your chest, lightheadedness, fainting, excessive fatigue, or sudden sweating. Your Current Medications: STOP TAKING THE FOLLOWING MEDICATIONS: Methadone- stopped about 2 weeks ago *. Prescription Medications: Cephalexin 500 mg: take 1 capsule orally every 8 hours for 5 days. No refill. (disp 15 caps.) Potassium Chloride 20 mEq: take 1 orally every 12 hours - Dispense thirty (30) No refills. (take for 15 days.) Follow-up: Return to the emergency department as needed. Follow up with your doctor in three days. Reason for referral: recheck today's concerns. Summary of care provided to patient via paper. Screening today revealed the patient's blood pressure to be in the normal range. The patient should follow up with a primary care provider for blood pressure management. Understanding of the discharge instructions verbalized by patient. Follow-up with: Zechariah Briseno MD, Cardiology, , [facility] - Cardiology, [address] [place] [address] [address], [place], [address] Follow up in three days. Reason for referral: recheck today's concerns. Summary of care provided to patient via paper. ADDITIONAL INFORMATION Chest Pain, Uncertain Cause Chest pain can happen for a number of reasons. Sometimes the cause can not be determined. If yourcondition does not seem serious, and your pain does not appear to be coming from your heart, your doctor may recommend watching it closely. Sometimes the signs of a serious problem take more time to appear. Therefore, watch for the warning signs listed below. Home care After your visit, follow these recommendations: Rest today and avoid strenuous activity. Take any prescribed medicine as directed. Follow-up care Follow up with your doctor or this facility as instructed or if you do not start to feel better within 24 hours. Call 911 Get immediate medical attention if any of the following occur: A change in the type of pain: if it feels different, becomes more severe, lasts longer, or begins to spread into your shoulder, arm, neck, jaw or back Shortness of breath or increased pain with breathing Weakness, dizziness, or fainting Rapid heart beat Get prompt medical attention Call your doctor right away if any of the following occur: Cough with dark colored sputum (phlegm) or blood Fever of 100.4F(38C) or higher, or as directed by your health care provider Swelling, pain or redness in one leg Bladder Infection,Female (Adult) A bladder infection ("cystitis" or "UTI") usually causes a constant urge to urinate and a burning when passing urine. Urine may be cloudy, smelly or dark. There may be pain in the lower abdomen. A bladder infection occurs when bacteria from the vaginal area enter the bladder opening (urethra). This can occur from sexual intercourse, wearing tight clothing, dehydration and other factors. Home Care: Drink lots of fluids (at least 6-8 glasses a day, unless you must restrict fluids for other medical reasons). This will force the medicine into your urinary system and flush the bacteria out of your body. Avoid sexual intercourse until your symptoms are gone. Avoid caffeine, alcohol and spicy foods. These can irritate the bladder. A bladder infection is treated with antibiotics. You may also be given Pyridium (generic = phenazopyridine) to reduce the burning sensation. This medicine will cause your urine to become a bright orange color. The orange urine may stain clothing. You may wear a pad or panty-liner to protect clothing. Preventing Future Infections: Always wipe from front to back after a bowel movement. Keep the genital area clean and dry. Drink plenty of fluids each day to avoid dehydration. Both sexual partners should wash before intercourse. Urinate right after intercourse to flush out the bladder. Wear cotton underwear and cotton-lined panty hose; avoid tight-fitting pants. If you are on control pills and are having frequent bladder infections, discuss with your doctor. Follow Up: Return to this facility or see your doctor if ALL symptoms are not gone after three days of treatment. Get Prompt Medical Attention if any of the following occur: Fever of 100.4F (38C) or higher, or as directed by your healthcare provider No improvement by the third day of treatment Increasing back or abdominal pain Repeated vomiting; unable to keep medicine down Weakness, dizziness or fainting Vaginal discharge Pain, redness or swelling in the labia (outer vaginal area) Hypokalemia Hypokalemia means a low level of potassium in the blood. This most often occurs in patients who take diuretics (water pills). It can also occur due to severe vomiting or diarrhea. A mild case usually causes no symptoms. It is only found with blood testing. More severe potassium loss causes generalized weakness, muscle or abdominal cramping, heart palpitations (rapid or irregular heartbeats) and low blood pressure. Home Care: 1) Take any potassium supplements prescribed. 2) Eat foods rich in potassium. The highest amount is found in artichoke, baked potatoes, spinach, cantaloupe, honeydew melon, cod, halibut, salmon, and scallops. White, red, or salgado beans are also very good sources. A modest amount is found in orange juice, bananas, carrots, and tomato juice. 3) Certain types of diuretics (water pills), such as Lasix (furosemide), require that you take potassium supplements for as long as you take the diuretic pills. If you are taking a diuretic, discuss the need for potassium supplements with your doctor. Follow Up with your doctor for a repeat blood test within the next week or as advised by our staff. Get Prompt Medical Attention if any of the following occur: -- Increased weakness -- Feeling dizzy -- Irregular heartbeat, extra beats or very fast heart rate -- Fainting spell Cephalexin Monohydrate Oral tablet What is this medicine? CEPHALEXIN (sef a JOSE in) is a cephalosporin antibiotic. It is used to treat certain kinds of bacterial infections It will not work for colds, flu, or other viral infections. How should I use this medicine? Take this medicine by mouth with a full glass of water. Follow the directions on the prescription label. This medicine can be taken with or without food. Take your medicine at regular intervals. Do not take your medicine more often than directed. Take all of your medicine as directed even if you think you are better. Do not skip doses or stop your medicine early. Talk to your kineseologist regarding the use of this medicine in children. While this drug may be prescribed for selected conditions, precautions do apply. What side effects may I notice from receiving this medicine? Side effects that you should report to your doctor or health health care social worker as soon as possible: allergic reactions like skin rash, itching or hives, swelling of the face, lips, or tongue breathing problems pain or trouble passing urine redness, blistering, peeling or loosening of the skin, including inside the mouth severe or watery diarrhea unusually weak or tired yellowing of the eyes, skin Side effects that usually do not require medical attention (report to your doctor or health health care social worker if they continue or are bothersome): gas or heartburn genital or anal irritation headache joint or muscle pain nausea, vomiting What may interact with this medicine? probenecid some other antibiotics What if I miss a dose? If you miss a dose, take it as soon as you can. If it is almost time for your next dose, take only that dose. Do not take double or extra doses. There should be at least 4 to 6 hours between doses. Where should I keep my medicine? Keep out of the reach of children. Store at room temperature between 59 and 86 degrees F (15 and 30 degrees C). Throw away any unused medicine after the expiration date. What should I tell my health care provider before I take this medicine? They need to know if you have any of these conditions: kidney disease stomach or intestine problems, especially colitis an unusual or allergic reaction to cephalexin, other cephalosporins, penicillins, other antibiotics, medicines, foods, dyes or preservatives or trying to get breast-feeding What should I watch for while using this medicine? Tell your doctor or health health care social worker if your symptoms do not begin to improve in a few days. Do not treat diarrhea with over the counter products. Contact your doctor if you have diarrhea that lasts more than 2 days or if it is severe and watery. If you have diabetes, you may get a false-positive result for sugar in your urine. Check with your doctor or health health care social worker. You have been given the following additional information: Chest Pain, Uncertain Cause Bladder Infection, Female (Adult) Hypokalemia Cephalexin Monohydrate Oral tablet (Electronically signed by Giorgio Lobo Dr. 02/21/2017 11:28)
--- NOTE | 2017-02-23 13:06 | ED MED RECONCILIATION SUMMARY ---
Patient: ALANA DIANA Medication Reconciliation Report [facility] VisitID: [id number] [place] [address] 36y, F Registration Date/Time: 02/16/2017 Weight: 47.6 kg Height/Length: 63 in. BMI: 18.6 ALLERGIES: Amoxicillin The patient's Home Medications are listed below: STOP TAKING THE FOLLOWING MEDICATIONS: Methadone- stopped about 2 weeks ago The source(s) of the original Home Medication information: Not obtained. The following Medications were given to the patient in the Emergency Department: IV NS IV Fluids bolus 0, then 1000 mL/hr, administered: 02/16/2017 8:26:00 PM Tylenol [PO] PO 650 mg, administered: 02/16/2017 10:29:00 PM Potassium Chloride [PO] PO 60 meq, administered: 02/16/2017 10:30:00 PM 1000cc NS bag #3 IV Fluids bolus 0, then 500cc/hr, administered: 02/16/2017 10:20:00 PM Ceftriaxone [IVPB] IVPB bolus 0, then 1 gm, administered: 02/16/2017 11:46:00 PM The following Medications were prescribed to the patient: Cephalexin 500 mg: take 1 capsule orally every 8 hours for 5 days. No refill.(disp 15 caps.) -- Giorgio Lobo Dr. Potassium Chloride 20 mEq: take 1 orally every 12 hours - Dispense thirty (30) No refills.(take for 15 days.) -- Giorgio Lobo Dr.
--- NOTE | 2017-02-23 13:06 | ED MED RECONCILIATION SUMMARY ---
Patient: ALANA DIANA Medication Reconciliation Report [facility] VisitID: [id number] [place] [address] 36y, F Registration Date/Time: 02/16/2017 Weight: 47.6 kg Height/Length: 63 in. BMI: 18.6 ALLERGIES: Amoxicillin The patient's Home Medications are listed below: STOP TAKING THE FOLLOWING MEDICATIONS: Methadone- stopped about 2 weeks ago The source(s) of the original Home Medication information: Not obtained. The following Medications were given to the patient in the Emergency Department: IV NS IV Fluids bolus 0, then 1000 mL/hr, administered: 02/16/2017 8:26:00 PM Tylenol [PO] PO 650 mg, administered: 02/16/2017 10:29:00 PM Potassium Chloride [PO] PO 60 meq, administered: 02/16/2017 10:30:00 PM 1000cc NS bag #3 IV Fluids bolus 0, then 500cc/hr, administered: 02/16/2017 10:20:00 PM Ceftriaxone [IVPB] IVPB bolus 0, then 1 gm, administered: 02/16/2017 11:46:00 PM The following Medications were prescribed to the patient: Cephalexin 500 mg: take 1 capsule orally every 8 hours for 5 days. No refill.(disp 15 caps.) -- Giorgio Lobo Dr. Potassium Chloride 20 mEq: take 1 orally every 12 hours - Dispense thirty (30) No refills.(take for 15 days.) -- Giorgio Lobo Dr.
--- NOTE | 2017-02-23 13:06 | ED MAR SUMMARY ---
..... Medication Administration Record [facility] [address] [place] [address] Patient: ALANA DIANA Visit ID: [id number] 36y, F Weight: 47.6 kg Height/Length: 63 in BMI: 18.6 ALLERGIES: Amoxicillin Start 20:26 02/16/2017 Ana Luisa Fu R.N. Medication Administered: IV NS (SALINE), Dose: IV Fluids over 1 hour(s), Rate: 1000 mL/hr, Dispensed: 1000 mL bag, Site: #1 left AC. Medication Ordered: IV NS : initial bolus 1000 mL (1000 mL/hr), then 1000 mL/hr for X1 (NOW); Earl. Start 22:20 02/16/2017 Ana Luisa Fu R.N., Stop 00:53 02/17/2017 Subhash Smith R.N. Medication Administered: 1000cc NS bag #3 *, Dose: 500cc/hr * IV Fluids. Medication Ordered: - (IV bag #3 at 500cc hr x 2 hours). Given 22:29 02/16/2017 Ana Luisa Fu R.N. Medication Administered: TYLENOL [PO] (ACETAMINOPHEN), Dose: 650 mg Tablets PO. Medication Ordered: Tylenol PO 650 mg (NOW). Given 22:30 02/16/2017 Ana Luisa Fu R.N. Medication Administered: POTASSIUM CHLORIDE [PO] (POTASSIUM CHLORIDE ER), Dose: 60 meq Capsules PO. Medication Ordered: Potassium Chloride PO 60 meq (NOW). Start 23:46 02/16/2017 Sophia Mendez R.N. Medication Administered: CEFTRIAXONE [IVPB], Dose: 1 gm IVPB over 20 minute(s), Dispensed: 50 mL bag, Site: #1 left AC. Medication Ordered: Ceftriaxone IV 1 gm/50mL (NOW).
--- NOTE | 2017-02-23 13:06 | ED MAR SUMMARY ---
..... Medication Administration Record [facility] [address] [place] [address] Patient: ALANA DIANA Visit ID: [id number] 36y, F Weight: 47.6 kg Height/Length: 63 in BMI: 18.6 ALLERGIES: Amoxicillin Start 20:26 02/16/2017 Ana Luisa Fu R.N. Medication Administered: IV NS (SALINE), Dose: IV Fluids over 1 hour(s), Rate: 1000 mL/hr, Dispensed: 1000 mL bag, Site: #1 left AC. Medication Ordered: IV NS : initial bolus 1000 mL (1000 mL/hr), then 1000 mL/hr for X1 (NOW); Earl. Start 22:20 02/16/2017 Ana Luisa Fu R.N., Stop 00:53 02/17/2017 Subhash Smith R.N. Medication Administered: 1000cc NS bag #3 *, Dose: 500cc/hr * IV Fluids. Medication Ordered: - (IV bag #3 at 500cc hr x 2 hours). Given 22:29 02/16/2017 Ana Luisa Fu R.N. Medication Administered: TYLENOL [PO] (ACETAMINOPHEN), Dose: 650 mg Tablets PO. Medication Ordered: Tylenol PO 650 mg (NOW). Given 22:30 02/16/2017 Ana Luisa Fu R.N. Medication Administered: POTASSIUM CHLORIDE [PO] (POTASSIUM CHLORIDE ER), Dose: 60 meq Capsules PO. Medication Ordered: Potassium Chloride PO 60 meq (NOW). Start 23:46 02/16/2017 Sophia Mendez R.N. Medication Administered: CEFTRIAXONE [IVPB], Dose: 1 gm IVPB over 20 minute(s), Dispensed: 50 mL bag, Site: #1 left AC. Medication Ordered: Ceftriaxone IV 1 gm/50mL (NOW).
--- NOTE | 2017-02-23 13:06 | ED DISCHARGE INSTRUCTIONS ---
Patient: ALANA DIANA General Instructions [facility] VisitID: [id number] [place] [address] 36y, F Registration Date/Time: 02/16/2017 Chest pain characterized as "pressure" .12 lead EKG performed. Acute urinary tract infection. Hypokalemia (acute). INSTRUCTIONS Warnings: GENERAL WARNINGS: Return or contact your physician immediately if your condition worsens or changes unexpectedly, if not improving as expected, or if other problems arise. SPECIFICALLY, return if you develop chest, neck, jaw, shoulder, arm, or back pain, difficulty breathing, a fluttering sensation in your chest, lightheadedness, fainting, excessive fatigue, or sudden sweating. Your Current Medications: STOP TAKING THE FOLLOWING MEDICATIONS: Methadone- stopped about 2 weeks ago *. Prescription Medications: Cephalexin 500 mg: take 1 capsule orally every 8 hours for 5 days. No refill. (disp 15 caps.) Potassium Chloride 20 mEq: take 1 orally every 12 hours - Dispense thirty (30) No refills. (take for 15 days.) Follow-up: Return to the emergency department as needed. Follow up with your doctor in three days. Reason for referral: recheck today's concerns. Summary of care provided to patient via paper. Screening today revealed the patient's blood pressure to be in the normal range. The patient should follow up with a primary care provider for blood pressure management. Understanding of the discharge instructions verbalized by patient. Follow-up with: Zechariah Briseno MD, Cardiology, , [facility] - Cardiology, [address] [place] [address] [address], [place], [address] Follow up in three days. Reason for referral: recheck today's concerns. Summary of care provided to patient via paper. ADDITIONAL INFORMATION Chest Pain, Uncertain Cause Chest pain can happen for a number of reasons. Sometimes the cause can not be determined. If yourcondition does not seem serious, and your pain does not appear to be coming from your heart, your doctor may recommend watching it closely. Sometimes the signs of a serious problem take more time to appear. Therefore, watch for the warning signs listed below. Home care After your visit, follow these recommendations: Rest today and avoid strenuous activity. Take any prescribed medicine as directed. Follow-up care Follow up with your doctor or this facility as instructed or if you do not start to feel better within 24 hours. Call 911 Get immediate medical attention if any of the following occur: A change in the type of pain: if it feels different, becomes more severe, lasts longer, or begins to spread into your shoulder, arm, neck, jaw or back Shortness of breath or increased pain with breathing Weakness, dizziness, or fainting Rapid heart beat Get prompt medical attention Call your doctor right away if any of the following occur: Cough with dark colored sputum (phlegm) or blood Fever of 100.4F(38C) or higher, or as directed by your health care provider Swelling, pain or redness in one leg Bladder Infection,Female (Adult) A bladder infection ("cystitis" or "UTI") usually causes a constant urge to urinate and a burning when passing urine. Urine may be cloudy, smelly or dark. There may be pain in the lower abdomen. A bladder infection occurs when bacteria from the vaginal area enter the bladder opening (urethra). This can occur from sexual intercourse, wearing tight clothing, dehydration and other factors. Home Care: Drink lots of fluids (at least 6-8 glasses a day, unless you must restrict fluids for other medical reasons). This will force the medicine into your urinary system and flush the bacteria out of your body. Avoid sexual intercourse until your symptoms are gone. Avoid caffeine, alcohol and spicy foods. These can irritate the bladder. A bladder infection is treated with antibiotics. You may also be given Pyridium (generic = phenazopyridine) to reduce the burning sensation. This medicine will cause your urine to become a bright orange color. The orange urine may stain clothing. You may wear a pad or panty-liner to protect clothing. Preventing Future Infections: Always wipe from front to back after a bowel movement. Keep the genital area clean and dry. Drink plenty of fluids each day to avoid dehydration. Both sexual partners should wash before intercourse. Urinate right after intercourse to flush out the bladder. Wear cotton underwear and cotton-lined panty hose; avoid tight-fitting pants. If you are on control pills and are having frequent bladder infections, discuss with your doctor. Follow Up: Return to this facility or see your doctor if ALL symptoms are not gone after three days of treatment. Get Prompt Medical Attention if any of the following occur: Fever of 100.4F (38C) or higher, or as directed by your healthcare provider No improvement by the third day of treatment Increasing back or abdominal pain Repeated vomiting; unable to keep medicine down Weakness, dizziness or fainting Vaginal discharge Pain, redness or swelling in the labia (outer vaginal area) Hypokalemia Hypokalemia means a low level of potassium in the blood. This most often occurs in patients who take diuretics (water pills). It can also occur due to severe vomiting or diarrhea. A mild case usually causes no symptoms. It is only found with blood testing. More severe potassium loss causes generalized weakness, muscle or abdominal cramping, heart palpitations (rapid or irregular heartbeats) and low blood pressure. Home Care: 1) Take any potassium supplements prescribed. 2) Eat foods rich in potassium. The highest amount is found in artichoke, baked potatoes, spinach, cantaloupe, honeydew melon, cod, halibut, salmon, and scallops. White, red, or salgado beans are also very good sources. A modest amount is found in orange juice, bananas, carrots, and tomato juice. 3) Certain types of diuretics (water pills), such as Lasix (furosemide), require that you take potassium supplements for as long as you take the diuretic pills. If you are taking a diuretic, discuss the need for potassium supplements with your doctor. Follow Up with your doctor for a repeat blood test within the next week or as advised by our staff. Get Prompt Medical Attention if any of the following occur: -- Increased weakness -- Feeling dizzy -- Irregular heartbeat, extra beats or very fast heart rate -- Fainting spell Cephalexin Monohydrate Oral tablet What is this medicine? CEPHALEXIN (sef a JOSE in) is a cephalosporin antibiotic. It is used to treat certain kinds of bacterial infections It will not work for colds, flu, or other viral infections. How should I use this medicine? Take this medicine by mouth with a full glass of water. Follow the directions on the prescription label. This medicine can be taken with or without food. Take your medicine at regular intervals. Do not take your medicine more often than directed. Take all of your medicine as directed even if you think you are better. Do not skip doses or stop your medicine early. Talk to your tubing machine operator regarding the use of this medicine in children. While this drug may be prescribed for selected conditions, precautions do apply. What side effects may I notice from receiving this medicine? Side effects that you should report to your doctor or health account executive healthcare as soon as possible: allergic reactions like skin rash, itching or hives, swelling of the face, lips, or tongue breathing problems pain or trouble passing urine redness, blistering, peeling or loosening of the skin, including inside the mouth severe or watery diarrhea unusually weak or tired yellowing of the eyes, skin Side effects that usually do not require medical attention (report to your doctor or health account executive healthcare if they continue or are bothersome): gas or heartburn genital or anal irritation headache joint or muscle pain nausea, vomiting What may interact with this medicine? probenecid some other antibiotics What if I miss a dose? If you miss a dose, take it as soon as you can. If it is almost time for your next dose, take only that dose. Do not take double or extra doses. There should be at least 4 to 6 hours between doses. Where should I keep my medicine? Keep out of the reach of children. Store at room temperature between 59 and 86 degrees F (15 and 30 degrees C). Throw away any unused medicine after the expiration date. What should I tell my health care provider before I take this medicine? They need to know if you have any of these conditions: kidney disease stomach or intestine problems, especially colitis an unusual or allergic reaction to cephalexin, other cephalosporins, penicillins, other antibiotics, medicines, foods, dyes or preservatives or trying to get breast-feeding What should I watch for while using this medicine? Tell your doctor or health account executive healthcare if your symptoms do not begin to improve in a few days. Do not treat diarrhea with over the counter products. Contact your doctor if you have diarrhea that lasts more than 2 days or if it is severe and watery. If you have diabetes, you may get a false-positive result for sugar in your urine. Check with your doctor or health account executive healthcare. You have been given the following additional information: Chest Pain, Uncertain Cause Bladder Infection, Female (Adult) Hypokalemia Cephalexin Monohydrate Oral tablet (Electronically signed by Giorgio Lobo Dr. 02/21/2017 11:28)
== END 2017-02-17 01:00 | disposition home or self-care (01) ==
LOC: ED SRH 19:43
DX: R07.89 Other chest pain (principal); N39.0 Urinary tract infection, site not specified; E87.6 Hypokalemia; Z88.1 Allergy status to other antibiotic agents
CPT/HCPCS: 90004; 90100; 90616; 91320; 91556; 92610; 92720; 92760; 92761; 92762; 92763; 92764; 92765; 92766; 92767; 93070; 93140; 95059

== ENCOUNTER 2017-04-10 17:39 | Emergency (ER) | payer SELFPAY ==
--- NOTE | 2017-04-10 19:18 | DIAGNOSTIC IMAGING REPORT ---
PROCEDURE: XR CHEST 2 VIEW INDICATION: CHEST PAIN TECHNIQUE: PA and lateral view. COMPARISON: Chest x-ray 02/16/2017. FINDINGS: Mild left basilar scarring with large left basilar bullae. Cardiovascular structures are normal. Bony thorax is unremarkable. No significant interval change. IMPRESSION: 1. No acute changes 2. Large left basilar bullae and left basilar scarring
--- NOTE | 2017-04-10 20:47 | DIAGNOSTIC IMAGING REPORT ---
PROCEDURE: CT ABD/PELVIS WITH CONTRAST CLINICAL INDICATION: ABDOMINAL PAIN TECHNIQUE: 105 ml of Isovue 300 were injected intravenously and axial images were obtained of the entire abdomen and pelvis with sagittal and coronal reformations. COMPARISON: CT abdomen/pelvis 07/10/2015. FINDINGS: ABDOMEN: Large left basilar bullae. Normal heart size. Small hiatal hernia. Severe steatosis. Gallbladder, pancreas, spleen and adrenal glands are normal. Stable small left renal cyst. Normal abdominal aorta. Mild wall thickening of the colon possibly due to decompression. PELVIS: Normal appendix. Wall thickening of the sigmoid colon probably due to decompression. Normal uterus and bladder. Small right ovarian cysts, largest 1 cm. No free fluid or inflammatory changes. Bilateral L5 spondylolysis. IMPRESSION: 1. Severe hepatic steatosis 2. Small hiatal hernia 3. Thickening of the entire colon probably due to decompression. Colitis is less likely. 4. Results discussed with CYNTHIA Manzo All CT scans at this facility use dose modulation, iterative reconstruction, and/or weight-based dosing when appropriate to reduce radiation dose to as low as reasonably achievable.
--- NOTE | 2017-04-10 22:14 | ED NURSING NOTES ---
Clinical Report - Nurses [facility] [address] [place] [address] 04/10/2017 17:39 Patient: ALANA DIANA TRIAGE Triage time 17:45. Acuity: LEVEL 3. Chief Complaint: ABDOMINAL PAIN, NAUSEA and VOMITING. Alert. No acute distress. --17:54 Arely Berger R.N. 17:45 04/10/17. BP: 148/88. HR: 131. RR: 25. O2 saturation: 100%. Temp: 97.3 F. Pain level now 07/25. --17:54 Arely Berger R.N. Weight: 47.6 kg stated. Height/Length: 63 inches Per Patient. BMI: 18.6. --17:53 Arely Berger R.N. Medications None. --22:44 Marley Cee R.N. Allergies Amoxicillin. --17:51 Arely Berger R.N. Medication/allergy information source: the patient. --17:54 Arely Berger R.N. History Arrived by EMS. Historian: patient. Primary physician (Cristina). This started last night. ( patient with NV and abd pain, had 2-3 shots of vodka.). Treatment MEDICAL REPRESENTATIVE: (1 L NS, 12.5 Phenergan IV from EMS). SOCIAL HX: Current every day light tobacco smoker. Alcohol use. History of drug use: marijuana. No infectious disease exposure. FALL RISK ASSESSMENT: Fall risk assessment completed. No fall risk identified. NUTRITIONAL RISK ASSESSMENT: The nutritional risk assessment revealed no deficiencies. FUNCTIONAL ASSESSMENT: Functional assessment: no impairments noted. LEARNING NEEDS ASSESSMENT: The learning needs assessment revealed no barriers. SKIN INTEGRITY ASSESSMENT: Skin integrity risk assessment completed. No skin integrity risk identified. --17:54 Arely Berger R.N. PROBLEMS: UTI - Urinary Tract Infection. Hypokalemia. Chest Pain. Bronchitis. Gastritis. Urinary Calculi. Anemia. Leukocytosis. Immunizations. Lifestyle / Substance Problems. Problems. Ovarian Cyst. Dysfunctional Uterine Bleeding. Abdominal Pain. Vaginal Bleeding. Endometriosis. Dysmenorrhea. LNMP - Last Normal Menstrual Period. OB History. --17:51 Arely Berger R.N. ADDITIONAL SURGERIES: . Laparoscopy. Tonsillectomy. --17:52 Arely Berger R.N. Interventions ID band on patient. To treatment room. --17:54 Arely Berger R.N. PHYSICAL ASSESSMENT GENERAL / NEURO / PSYCH: Oriented X 4. Appears anxious. CVS: Cardiac rhythm: sinus tachycardia. GI / : The patient has had nausea. Emesis noted. Abdominal tenderness. SKIN: Skin is warm and dry. --17:55 Arely Berger R.N. NURSING PROGRESS NOTES Monitoring of patient in place. EKG time: (1752). Patient gowned. Head of bed elevated. Reassurance given. Two patient identifiers checked. Call light placed in reach. Side rails up x 2. Bed placed in lowest position. Brakes of bed on. Patient ready for evaluation- chart flagged. ED physician notified. --17:56 Arely Berger R.N. <<STRICKEN ENTRY-- 17:51 04/10/2017 Started bag #1 1000 mL IV Fluids IV NS (Saline); at 1000 mL/hr via site #1 via IV pump. Allergies verified and confirmed 5 rights. IV patency established. IV site checked: no pain, redness, or swelling. IV flushed thoroughly pre- and post-medication administration. --18:20 Arely Berger R.N. --END STRIKE>> Change to Details. --18:26 Arely Berger R.N. 17:51 04/10/2017 Started bag #2 1000 IV Fluids IV NS (Saline); at 1000 mL/hr via site #1 via IV pump. Allergies verified and confirmed 5 rights. IV patency established. IV site checked: no pain, redness, or swelling. IV flushed thoroughly pre- and post-medication administration. --18:26 Arely Berger R.N. 17:51 04/10/2017 Started bag #1 1000 mL IV Fluids IV NS (Saline); at 1000 mL/hr via site #1. (1 L NS was infused upon arrival to ED by EMS). --18:27 Arely Berger R.N. 17:52 04/10/2017 IV Fluids IV NS Discontinued: bag #1 completed upon arrival. Total amount infused: 1000 mL. IV patency established. IV site checked: no pain, redness, or swelling. IV flushed thoroughly. --18:28 Arely Berger R.N. 17:55 04/10/2017 Site #1 started prior to arrival by EMS via IV in the right antecubital space with an 20g angiocath. --18:20 Arely Berger R.N. 18:22 04/10/2017 Reglan (Metoclopramide HCl) IVP 10 mg given over 2 minute(s) via site #1. Allergies verified and confirmed 5 rights. IV patency established. IV site checked: no pain, redness, or swelling. IV flushed thoroughly pre- and post-medication administration. IVP given by RN. --18:22 Cathy Hinojosa R.N. 18:23 04/10/2017 Zofran (Ondansetron HCl) IVP 8 mg given over 4 minute(s) via site #1. Allergies verified and confirmed 5 rights. IV patency established. IV site checked: no pain, redness, or swelling. IV flushed thoroughly pre- and post-medication administration. IVP given by RN. --18:23 Cathy Hinojosa R.N. 19:06 04/10/17. BP: 131/87. HR: 122. RR: 28. O2 saturation: 100%. Pain level now: 7/10. 18:30 04/10/17. BP: 123/109. HR: 120. RR: 28. O2 saturation: 95%. --19:11 Arely Berger R.N. 19:07 04/10/2017 Morphine IVP 4 mg given. via site #1. Allergies verified, confirmed 5 rights and sedative warning given to the patient. IV patency established. IV site checked: no pain, redness, or swelling. IV flushed thoroughly pre- and post-medication administration. IVP given by RN. --19:12 Arely Berger R.N. Care transferred and report given. --19:14 Arely Berger R.N. EC02= 3.9. Critical value. Verified lab result and patient ID. PA notifed of critical value. --19:18 Marley Cee R.N. Care transferred and report received. --19:19 Marley Cee R.N. 19:44 04/10/2017 IV Fluids IV NS Discontinued: bag #2 completed. Total amount infused: 1000 mL. IV patency established. IV site checked: no pain, redness, or swelling. IV flushed thoroughly. --19:45 Marley Cee R.N. 20:02 04/10/2017 Started bag #3 1000 mL IV Fluids IV NS (Saline); at 1000 mL/hr over 1 hour(s) via site #1. Allergies verified and confirmed 5 rights. IV patency established. IV site checked: no pain, redness, or swelling. IV flushed thoroughly pre- and post-medication administration. --20:04 Marley Cee R.N. Patient transported to OK by wheelchair with tech. --20:08 Marley Cee R.N. 20:50 04/10/2017 IV Fluids IV NS Discontinued: bag #3 completed. Total amount infused: 1000 mL. IV patency established. IV site checked: no pain, redness, or swelling. IV flushed thoroughly. --20:50 Marley Cee R.N. 20:50 04/10/17. BP: 151/92. HR: 111. RR: 15. O2 saturation: 100% on room air. Pain level now: 07/25. --20:53 Marley Cee R.N. 21:18 04/10/17. BP: 152/99. HR: 110. RR: 15. O2 saturation: 100% on room air. --21:18 Marley Cee R.N. 21:16 04/10/2017 Ativan (LORazepam) IVP 2 mg given diluted in NS 10mL over 90 second(s) via site #1. Allergies verified, confirmed 5 rights and sedative warning given to the patient. IV patency established. IV site checked: no pain, redness, or swelling. IV flushed thoroughly pre- and post-medication administration. IVP given by RN. --21:20 Marley Cee R.N. 21:24- attempted to draw blood from IV site #1, unable to draw. IV site flushes well with no signs of infiltrate, no pain or swelling. LAB notified of need for additional blood to be drawn. --21:26 Marley Cee R.N. 21:55 04/10/17. BP: 158/100 (small adult cuff) taken on the left arm, via an automated monitor, while sitting. HR: 115 (regular). RR: 24 (regular). O2 saturation: 100% on room air. Temp: 99.9 F. --21:57 Kirsten Banerjee Lactate level: 6.4. PA notifed of critical value. Orders were received. --22:07 Marley Cee R.N. 22:11 04/10/2017 Started bag #4 1000 mL IV Fluids IV NS (Saline); at 1000 mL/hr via site #1. Allergies verified and confirmed 5 rights. IV patency established. IV site checked: no pain, redness, or swelling. IV flushed thoroughly pre- and post-medication administration. --22:13 Marley Cee R.N. ( family member/friend arrives at bedside.). --22:24 Marley Cee R.N. ( after verbal ok from pt, pt's stepfather updated with plan of care and anticipated admission to hospital.). --22:37 Marley Cee R.N. 22:39 04/10/17. BP: 141/95. HR: 111. RR: 15. O2 saturation: 100% on room air. --22:39 Marley Cee R.N. 23:10 04/10/2017 IV Fluids IV NS Discontinued: bag #4. Total amount infused: 1000 mL. IV patency established. IV site checked: no pain, redness, or swelling. IV flushed thoroughly. --00:27 Marley Cee R.N. 00:20 04/11/2017 Started bag #5 1000 mL IV Fluids IV NS (Saline); at 150 mL/hr via site #1 via IV pump. Allergies verified and confirmed 5 rights. IV patency established. IV site checked: no pain, redness, or swelling. IV flushed thoroughly pre- and post-medication administration. --00:28 Marley Cee R.N. 00:23 04/11/2017 Reglan (Metoclopramide HCl) IVP 10 mg given over 3 minute(s) via site #1. Allergies verified and confirmed 5 rights. IV patency established. IV site checked: no pain, redness, or swelling. IV flushed thoroughly pre- and post-medication administration. IVP given by RN. --00:28 Marley Cee R.N. 00:34 04/11/17. BP: 145/95. HR: 116. RR: 15. O2 saturation: 98% on room air. Pain level now: 0/10. --00:34 Marley Cee R.N. DISPOSITION / DISCHARGE Transferred to [facility]. Report was given to a nurse via a phone call. Report included patient's care, treatment, medications, reviewed medication reconcilliation, and condition (including any recent changes or anticipated changes). All questions were answered. Report was acknowledged. (called to Tiffani Rivera RN). --00:43 Marley Cee R.N. 01:03 04/11/17. BP: 145/95. HR: 109. RR: 15. O2 saturation: 99% on room air. Temp: 99.6 F (oral). --01:04 Marley Cee R.N. Report was given to a nurse. Report included patient's care, treatment, medications, reviewed medication reconcilliation, and condition (including any recent changes or anticipated changes). All questions were answered. Report was acknowledged and care was transferred. (Ralf Rivera computer meteorologist). --01:04 Marley Cee R.N. Patient's personal items include: shirt, shoes and cell phone; items were placed in belongings bag and transported with the patient. Collection of belongings was witnessed by 1 nurse. --01:05 Marley Cee R.N. 01:05 04/11/[address] upon transfer; patent; flushes easily. --01:05 Marley Cee R.N. 01:05 04/11/2017 IV Fluids IV NS Continued: upon transfer at the rate of 150 mL/hr. 910 mL remaining bag #5. IV patency established. IV site checked: no pain, redness, or swelling. IV flushed thoroughly. --01:05 Marley Cee R.N. Departure time: 01:10- Per request by Tiffani CCU RN, phone call made to inform Zac CCU RN that pt has left CV. --01:11 Marley Cee R.N. Locked/Released at 04/11/2017 1:12 by Marley Cee R.N.
--- NOTE | 2017-04-10 22:14 | ED ORDER SUMMARY ---
..... Patient: ALANA DIANA OrderSheet [facility] VisitID: [id number] [place] [address] 36y, F Registration Date/Time: 04/10/2017 ORDER SHEET Weight: 47.6 kg (stated) Allergies: Amoxicillin GENERAL ORDERS: Chest 2V Urgent (17:50 04/10/2017 EKoroleva P.A.-C) (Ack 18:02 PWeiler ER Tech1) (18:12 Sherin R.N.) Cardiac Panel Stat (17:51 04/10/2017 EKoroleva P.A.-C) (Ack 18:02 PWeiler ER Tech1) (21:16 LMuller) Urine Urgent (17:51 04/10/2017 EKoroleva P.A.-C) (Ack 18:02 PWeiler ER Tech1) (18:21 LAbe R.N.) Urine Drug Screen Urgent (17:51 04/10/2017 EKoroleva P.A.-C) (Ack 18:02 PWeiler ER Tech1) (18:21 LAbe R.N.) EKG - ER Stat (17:56 04/10/2017 LNations ER Tech1 per protocol) (17:56 LNations ER Tech1) (17:57 LAbe R.N.) Vitals (18:56 04/10/2017 EKoroleva P.A.-C) (19:02 LAbe R.N.) Vitals (19:06 04/10/2017 EKoroleva P.A.-C) (19:11 LAbe R.N.) ABG (G) Urgent (19:18 04/10/2017 EKoroleva P.A.-C) (Ack 19:28 LMuller) (19:42 RCollier R.N.) Ethyl Alcohol Urgent (19:20 04/10/2017 EKoroleva P.A.-C) (Ack 19:28 LMuller) (19:32 LMuller) UA-Culture if indicated Urgent (19:37 04/10/2017 EKoroleva P.A.-C) (Ack 19:50 LMuller) (20:00 RCollier R.N.) CT Abd/Pel w Cont (No) (N/A) Urgent (19:56 04/10/2017 EKoroleva P.A.-C) (Ack 20:04 LMuller) (20:23 LMuller) Acetone, Serum Urgent (21:10 04/10/2017 EKoroleva P.A.-C) (21:18 LMuller) Lactate, Serum Urgent (21:10 04/10/2017 EKoroleva P.A.-C) (Ack 21:18 LMuller) (22:13 RCollier R.N.) Chest 2V Urgent (22:09 04/10/2017 EKoroleva P.A.-C) (Ack 22:17 LMuller) (Cancelled: Other22:38 EKoroleva P.A.-C) Lipase Urgent (22:13 04/10/2017 EKoroleva P.A.-C) (22:16 LMuller) - (triglyceride) (23:12 04/10/2017 EKoroleva P.A.-C) (Ack 23:16 LMuller) (23:16 LMuller) PT with INR Urgent (23:13 04/10/2017 EKoroleva P.A.-C) (Ack 23:16 LMuller) (23:16 LMuller) PTT Urgent (23:13 04/10/2017 EKoroleva P.A.-C) (Ack 23:16 LMuller) (23:16 LMuller) NPO (00:05 04/11/2017 EKoroleva P.A.-C) (0:28 RCollier R.N.) MEDICATION ORDERS: IV FLUIDS: IV NS : initial bolus 1000 mL (1000 mL/hr), then 1000 mL/hr for X1 (NOW); Earl (17:50 04/10/2017 EKoroleva P.A.-C) (Ack 18:13 Sherin R.N.) (18:20 LAbe R.N.) Reglan IV 10 mg (NOW) (18:02 04/10/2017 EKoroleva P.A.-C) (Ack 18:13 Sherin R.N.) (18:22 Sherin R.N.) Zofran IV 8 mg (NOW) (18:02 04/10/2017 EKoroleva P.A.-C) (Ack 18:13 Sherin R.N.) (18:23 Sherin R.N.) Morphine IV 4 mg (HIGH ALERT MEDICATION, NOW) (18:56 04/10/2017 EKoroleva P.A.-C) (Ack 19:02 LAbe R.N.) (19:12 LAbe R.N.) IV NS : initial bolus 1000 mL (1000 mL/hr), then 250 mL/hr for X1 (NOW); Earl (19:55 04/10/2017 EKoroleva P.A.-C) (Ack 20:00 RCollier R.N.) (20:04 RCollier R.N.) Ativan IV 2 mg (HIGH ALERT MEDICATION, NOW) (21:10 04/10/2017 EKoroleva P.A.-C) (Ack 21:12 RCollier R.N.) (21:20 RCollier R.N.) IV NS : initial bolus none -, then 1000 mL/hr (NOW) (Bag #4 NS) (22:12 04/10/2017 RCollier R.N. verbal order read back to EKoroleva P.A.-C) (22:13 RCollier R.N.) IV NS : initial bolus none -, then 150 mL/hr for X1 (NOW); Earl (00:05 04/11/2017 EKoroleva P.A.-C) (Ack 0:11 RCollier R.N.) (0:28 RCollier R.N.) Reglan IV 10 mg (NOW) (00:05 04/11/2017 EKoroleva P.A.-C) (Ack 0:11 RCollier R.N.) (0:28 RCollier R.N.) Dilaudid IV 0.5 mg (HIGH ALERT MEDICATION, NOW) (00:05 04/11/2017 EKoroleva P.A.-C) (Ack 0:11 RCollier R.N.) Ativan IV 1 mg (HIGH ALERT MEDICATION, NOW) (00:05 04/11/2017 Carlos Cisneros) (Ack 0:11 Ayden Christian) ORDER SHEET NOTES: [Electronically signed by Lucy Grant P.A.-C (00:12 04/11/2017)] [Electronically signed by Marley Cee R.N. (:04/11/2017)] [Electronically locked/signed by Marley Cee R.N. (:04/11/2017)]
--- NOTE | 2017-04-10 22:14 | ED CLINICAL REPORT ---
Clinical Report - Physicians/Mid Levels [facility] [address] [place] [address] 04/10/2017 17:39 Patient: ALANA DIANA Time Seen: 18:06 Apr 10 2017. Arrived- By ambulance. Historian- patient and EMS personnel. HISTORY OF PRESENT ILLNESS Chief Complaint: ABDOMINAL PAIN. This started yesterday and is still present. It is described as "pain" and it is described as located in the upper abdomen. The patient has had nausea and vomiting. No diarrhea. (patient reports episode of abdominal pain on Monday, worsening with n/v, no diarrhea. Denies sick contacts. Heavy drinking since October. Reports fevers/ cough. Reports epigastric pain, radiating into her lower abdomen, reports palpitations at times. Denies any hemoptysis. Pain worsens with food. NO hematochezia.). REVIEW OF SYSTEMS No constipation, black stools, difficulty with urination, pain with urination or urinary frequency. No fever, headache, sore throat, blurred vision or chest pain. No difficulty breathing or chills. All systems otherwise negative, except as recorded above. PAST HISTORY Problems: UTI - Urinary Tract Infection. Hypokalemia. Chest Pain. Bronchitis. Gastritis. Urinary Calculi. Anemia. Leukocytosis. Immunizations. Lifestyle / Substance Problems. Problems. . Ovarian Cyst. Dysfunctional Uterine Bleeding. Abdominal Pain. Vaginal Bleeding. Endometriosis. Dysmenorrhea. LNMP - Last Normal Menstrual Period. OB History. Additional Surgeries: . Laparoscopy. Tonsillectomy. Medications: None. Allergies: Amoxicillin. SOCIAL HISTORY Current every day smoker. Alcohol use. History of drug use: marijuana. ADDITIONAL NOTES The nursing notes have been reviewed. PHYSICAL EXAM Vital Signs: 04/10/2017 17:45 BP: 148/88. HR: 131. RR: 25. O2 saturation: 100%. Temp: 97.3 F. Appearance: Alert. Appears to be in pain. Patient in mild distress. Eyes: Eyes normal inspection. ENT: Ears normal. Neck: No lymphadenopathy or thyromegaly. CVS: Tachycardia. Heart sounds normal. Respiratory: No respiratory distress. Respiratory distress with tachypnea. Breath sounds normal. No accessory muscle use or decreased air movement. Abdomen: Soft and nontender. Mild tenderness in the epigastric area and periumbilical area. Bowel sounds normal. No mass. The bowel sounds are not abnormal. Back: Normal inspection. No CVA tenderness. Skin: Skin warm. Normal skin color. Skin not cool on palpation. Neuro: Oriented X 3. No alteration in mental status. No motor deficit. No sensory deficit. LABS, X-RAYS, AND EKG EKG: EKG time: (1754). No acute process. No acute ischemia. Tachycardia (137). Non-specific ST segment / T wave abnormalities. reviwed with DR. Wise. Prior EKG unavailable. The study has been interpreted contemporaneously. The EKG appears to be a good tracing. Chest X-ray: (IMPRESSION: 1. No acute changes 2. Large left basilar bullae and left basilar scarring Electronically Final signed by:René Flood MD 04/10/2017 7:17:53 PM). Abdominal CT: IMPRESSION: 1. Severe hepatic steatosis 2. Small hiatal hernia 3. Thickening of the entire colon probably due to decompression. Colitis is less likely. 4. Results discussed with CYNTHIA Manzo All CT scans at this facility use dose modulation, iterative reconstruction, and/or weight-based dosing when appropriate to reduce radiation dose to as low as reasonably achievable. Electronically Final signed by:René Flood MD 04/10/2017 8:47:12 PM. Laboratory Tests: UA-Culture if indicated: (DOUG: 04/10/2017 18:03) ( MsgRcvd 04/10/2017 20:52) Final results Test Result Flag Units (Reference) URINE COLOR YELLOW URINE APPEARANCE CLEAR URINE GLUCOSE NEGATIVE (NEGATIVE) URINE BILIRUBIN NEGATIVE (NEGATIVE) URINE KETONE 3+ (NEGATIVE) URINE SPECIFIC GRAVITY >= 1.030 (1.010-1.030) URINE PH 6.0 (5.0-8.0) URINE PROTEIN 1+ (NEGATIVE) URINE UROBILINOGEN 0.2 EU/dL (0.2-1.0) URINE NITRITE NEGATIVE (NEGATIVE) URINE BLOOD 2+ (NEGATIVE) URINE LEUK ESTERASE NEGATIVE (NEGATIVE) URINE RBC 0-1 rbc/hpf (0-1) URINE WBC 0-1 wbc/hpf (0-1) URINE EPITHELIAL CELLS 3-5 EPI/hpf (0-5) URINE BACTERIA MODERATE (2+ TO 3+) (NONE SEEN) URINE COMMENT CULTURE INDICATED 1+ MUCUSURINE CULTURES ARE SET-UP BASED ON THE FOLLOWING CRITERIA:POSITIVE NITRITEPOSITIVE LEUKOCYTE ESTERASEGREATER THAN 10 WHITE BLOOD CELLSMODERATE (2+) OR GREATER BACTERIA Urine: (DOUG: 04/10/2017 18:03) ( [facility] 04/10/2017 18:17) Final results Test Result Flag Units (Reference) URINE NEGATIVE CBC w Diff: (DOUG: 04/10/2017 18:45) ( [facility] 04/10/2017 19:00) Final results Test Result Flag Units (Reference) WHITE BLOOD COUNT 15.9 H K/uL (4.5-11.5) RED BLOOD COUNT 3.94 L M/uL (4.00-5.20) HEMOGLOBIN 13.6 gm/dL (12.0-16.0) HEMATOCRIT 41.2 % (36.0-46.0) MEAN CELL VOLUME 105 H fL (80-100) MEAN CORPUSCULAR HGB 35 H pg (26-34) MEAN CORPUSCULAR HGB CONC 33 g/dL (31-37) RED CELL DISTRIBUTION WIDTH 15.7 H % (11.6-14.8) PLATELET COUNT 178 K/uL (150-400) NEUTROPHIL % 88.5 H % (50-75) LYMPH % 7.9 L % (25-40) MONO % 3.4 % (3-14) EOSINOPHIL % 0 % (0-4) BASOPHIL % 0.2 % (0-2) PT with INR: (DOUG: 04/10/2017 22:45) ( [facility] 04/10/2017 23:51) Final results Test Result Flag Units (Reference) INR 1.1 (0.8-1.2) Low Intensity Therapy: INR 1.5-2.0 PT range 18.5-23.1Mod.Intensity Therapy: INR 2.0-3.0 PT range 23.1-31.5High Intensity Therapy: INR 2.5-3.5 PT range 27.4-35.5High Intensity Therapy 2: INR 3.0-4.0 PT range 31.5-39.3 APTT 30 SECONDS (24-34) [id number]: (DOUG: 04/10/2017 22:45) ( [facility] 04/10/2017 23:37) Final results Test Result Flag Units (Reference) TRIGLYCERIDES 270 H mg/dL (30-200) Lipase: (DOUG: 04/10/2017 21:30) ( [facility] 04/10/2017 22:35) Final results Test Result Flag Units (Reference) LIPASE 1014 H U/L (73-393) Lactate, Serum: (DOUG: 04/10/2017 21:35) ( [facility] 04/10/2017 22:18) Final results Test Result Flag Units (Reference) LACTIC ACID 6.4 H mmol/L (0.4-2.0) CRITICAL RESULTS CALLEDCalled to OIBE HODGES, 04/10/17 2217Were 2 patient identifiers used? YESWas the result read back? YES Acetone, Serum: (DOUG: 04/10/2017 18:45) ( [facility] 04/10/2017 21:25) Final results Test Result Flag Units (Reference) ACETONE, SERUM QUALITATIVE POSITIVE (NEGATIVE) Ethyl Alcohol: (DOUG: 04/10/2017 18:45) ( [facility] 04/10/2017 19:31) Final results Test Result Flag Units (Reference) ETHYL ALCOHOL 16 H mg/dL (3-10) Urine Drug Screen: (DOUG: 04/10/2017 18:03) ( [facility] 04/10/2017 18:48) Final results Test Result Flag Units (Reference) AMPHETAMINE/METHAMPHETAMINE NEGATIVE (NEGATIVE) BARBITURATE NEGATIVE (NEGATIVE) BENZODIAZEPINE NEGATIVE (NEGATIVE) CANNABINOID POSITIVE H (NEGATIVE) COCAINE NEGATIVE (NEGATIVE) ECSTASY NEGATIVE (NEGATIVE) METHADONE NEGATIVE (NEGATIVE) OPIATE NEGATIVE (NEGATIVE) The urine drug screen is a qualitative screening test fordrug overdose and abuse. All screen results should beconsidered as presumptive.Drugs screened for are as follows:BenzodiazepinesCocaineAmphetamines/MetamphetaminesTHC (Tetrahydrocannabinol)OpiatesBarbituratesEcstasyMethadonePositive results are unconfirmed. For confirmation, notifythe lab for the specimen to be sent to the reference lab.All confirmations must be performed by a differentmethodology.The ingestion of natural herbal and plant productscontaining Ephedra/Ephedra metabolites can produce in urineone or more substances capable of cross reacting withamphetamine/methamphetamine immunoassays. These testsprovide a preliminary result only. A more specificalternative chemical method must be used to obtain aconfirmed analytical result. CHEM 13 PANEL: (DOUG: 04/10/2017 18:45) ( MsgRcvd 04/10/2017 19:18) Final results Test Result Flag Units (Reference) GLUCOSE 70 mg/dL (70-110) BUN 12 mg/dL (7-18) CREATININE 0.9 mg/dL (0.6-1.3) Estimated GFR >60 mL/min Estimated GFR- >60 mL/min Note: Persistent reduction over 3 months in eGFR<60 mL/min/1.73 m2 defines CKD. Patients with eGFR values>=60 mL/min/1.73 m2 may also have CKD if evidence ofpersistent proteinuria. Additional information may be foundat www.kidney.org. SODIUM 140 mmol/L (136-145) POTASSIUM 3.8 mmol/L (3.5-5.1) CHLORIDE 97 L mmol/L (98-107) CARBON DIOXIDE 4 *L mmol/L (21-32) CRITICAL RESULTS CALLEDCalled to OBIE HODGES, ER 04/10/17 1917Were 2 patient identifiers used? YESWas the result read back? YES CALCIUM 8.3 L mg/dL (8.5-10.1) TOTAL PROTEIN 7.4 g/dL (6.4-8.2) ALBUMIN 3.9 g/dL (3.3-5.0) BILIRUBIN, TOTAL 0.9 mg/dL (0.0-1.0) ALKALINE PHOSPHATASE 84 U/L (46-116) AST (SGOT) 101 H U/L (15-37) ALT (SGPT) 53 U/L (12-78) CPK 37 U/L (24-260) MAGNESIUM 1.6 L mg/dL (1.8-2.4) TROPONIN I <0.05 L ng/mL (0.00-1.5) TROPONIN REFERENCE RANGE:<0.1 NEGATIVE0.1-1.5 INDETERMINANT>1.5 POSITIVE ABG: (DOUG: 04/10/2017 19:18) ( MsgRcvd 04/10/2017 19:47) Final results Test Result Flag Units (Reference) FIO2 0.21 L % (20-101) ABG MODE OF DELIVERY RA MODIFIED AURA TEST POSITIVE? NO LITERS PER MIN. 0 L/MIN (0-20) ABG VENT MODE RA ARTERIAL BLOOD GAS SITE RR ARTERIAL BLOOD GAS pH 7.12 *L (7.35-7.45) ABG PCO2 12.6 *L mmHg (35-45) ABG PO2 117.0 H mmHg (80.0-100.0) ABG BASE EXCESS -23.2 *L mmol/L (-6.0--6.0) ABG HCO3 4.1 *L mmol/L (20.0-26.0) ABG TCO2 4.5 *L mmol/L (24.0-30.0) ABG [id number] 17.6 H mmHg (7.0-14.0) *NOTE: Normal rangeis based on aFIO2 of 21% ABG SAT O2 97.3 % (95.1-100.0) ABG TOTAL HEMOGLOBIN 12.8 g/dL (12.0-16.0) ABG O2 HEMOGLOBIN 96.0 % (95.0-100.0) ABG CARBOXYHEMOGLOBIN 1.2 % (0.5-1.5) ABG METHEMOGLOBIN 0.1 L % (0.4-1.5) ABG RHEMOGLOBIN 2.7 % COMMENTS ROOM AIR . PROGRESS AND PROCEDURES Course of Care: Discussed case with , recommends lactic acid. Patient in the emergency department has had for liter of fluid. Has had no emesis or diarrhea in the emergency department. She does report since October she started drinking heavily about 1 L every other day of alcohol, after she stopped using methadone. [address] Quiñonez: Hospitalist, currently no ICU bed, need to transfer. Paged [facility], awaiting to hear if they have ICU beds. CT abd largely with no acute changes, hepatitic steatosis present. CXR: no signs of acute infiltrate. EKG with tachycardia, neg set of first cardiac enzymes. She received 4 L of fluid, lactic after 2nd L was 6. NO signs of infectious process, abx not started. Pt is stable, resting comfortably in the er, HR now 108, 148/105. [address] Rios, who will accept pt pending triglyceride levels, which have returned at 270. Pt stable. [address] Galvan, GI consulted on behalf of [facility] hospitalist for this admission. 04/10/2017 22:39 BP: 141/95. HR: 111. RR: 15. O2 saturation: 100%. 04/10/2017 21:55 BP: 158/100. HR: 115. RR: 24. O2 saturation: 100%. Temp: 99.9 F. 04/10/2017 21:18 BP: 152/99. HR: 110. RR: 15. O2 saturation: 100%. 04/10/2017 20:50 BP: 151/92. HR: 111. RR: 15. O2 saturation: 100%. Pain level now: /. Patient is stable. Symptoms better. Patient/family counseled. Disposition: Transferred. CLINICAL IMPRESSION Substance abuse problems: abuse of alcohol. Substance dependence problems: dependence on alcohol. Lactic Acidosis likely secondary to alcoholism Pancreatitis. (Electronically signed by Lucy Grant P.A.-C 04/11/2017 0:12)
--- NOTE | 2017-04-11 01:12 | ED MAR SUMMARY ---
..... Medication Administration Record [facility] [address] [place] [address] Patient: ALANA DIANA Visit ID: [id number] 36y, F Weight: 47.6 kg Height/Length: 63 in BMI: 18.6 ALLERGIES: Amoxicillin Start 17:51 04/10/2017 Arely Berger R.N., Stop 19:44 04/10/2017 Marley Cee R.N. Medication Administered: IV NS (SALINE), Dose: IV Fluids, Rate: 1000 mL/hr, Dispensed: 1000 mL bag, Site: #1. Medication Ordered: IV NS : initial bolus 1000 mL (1000 mL/hr), then 1000 mL/hr for X1 (NOW); Earl. Start 17:51 04/10/2017 Arely Berger R.N., Stop 17:52 04/10/2017 Arely Berger R.N. Medication Administered: IV NS (SALINE), Dose: IV Fluids, Rate: 1000 mL/hr, Dispensed: 1000 mL bag, Site: #1. Medication Ordered: IV NS : initial bolus 1000 mL (1000 mL/hr), then 1000 mL/hr for X1 (NOW); Earl. Given 18:22 04/10/2017 Cathy Hinojosa R.N. Medication Administered: REGLAN [IVP] (METOCLOPRAMIDE HCL), Dose: 10 mg IVP over 2 minute(s), Site: #1 right AC. Medication Ordered: Reglan IV 10 mg (NOW). Given 18:23 04/10/2017 Cathy Hinojosa R.N. Medication Administered: ZOFRAN [IVP] (ONDANSETRON HCL), Dose: 8 mg IVP over 4 minute(s), Site: #1 right AC. Medication Ordered: Zofran IV 8 mg (NOW). Given 19:07 04/10/2017 Arely Berger R.N. Medication Administered: MORPHINE [IVP], Dose: 4 mg IVP, Site: #1 right AC. Medication Ordered: Morphine IV 4 mg (HIGH ALERT MEDICATION, NOW). Start 20:02 04/10/2017 Marley Cee R.N., Stop 20:50 04/10/2017 Marley Cee R.N. Medication Administered: IV NS (SALINE), Dose: IV Fluids over 1 hour(s), Rate: 1000 mL/hr, Dispensed: 1000 mL bag, Site: #1 right AC. Medication Ordered: IV NS : initial bolus 1000 mL (1000 mL/hr), then 250 mL/hr for X1 (NOW); Earl. Given 21:16 04/10/2017 Marley Cee R.N. Medication Administered: ATIVAN [IVP] (LORAZEPAM), Dose: 2 mg IVP over 90 second(s), In: NS 10 mL, Site: #1 right AC. Medication Ordered: Ativan IV 2 mg (HIGH ALERT MEDICATION, NOW). Start 22:11 04/10/2017 Marley Cee R.N., Stop 23:10 04/10/2017 Marley Cee R.N. Medication Administered: IV NS (SALINE), Dose: IV Fluids, Rate: 1000 mL/hr, Dispensed: 1000 mL bag, Site: #1 right AC. Medication Ordered: IV NS : initial bolus none -, then 1000 mL/hr (NOW) (Bag #4 NS). Start 00:20 04/11/2017 Marley Cee R.N., Continued Upon Transfer 01:05 04/11/2017 Marley Cee R.N. Medication Administered: IV NS (SALINE), Dose: IV Fluids, Rate: 150 mL/hr, Dispensed: 1000 mL bag, Site: #1 right AC. Medication Ordered: IV NS : initial bolus none -, then 150 mL/hr for X1 (NOW); Earl. Given 00:23 04/11/2017 Marley Cee R.N. Medication Administered: REGLAN [IVP] (METOCLOPRAMIDE HCL), Dose: 10 mg IVP over 3 minute(s), Site: #1 right AC. Medication Ordered: Reglan IV 10 mg (NOW).
--- NOTE | 2017-04-11 01:12 | ED MAR SUMMARY ---
..... Medication Administration Record [facility] [address] [place] [address] Patient: ALANA DIANA Visit ID: [id number] 36y, F Weight: 47.6 kg Height/Length: 63 in BMI: 18.6 ALLERGIES: Amoxicillin Start 17:51 04/10/2017 Arely Berger R.N., Stop 19:44 04/10/2017 Marley Cee R.N. Medication Administered: IV NS (SALINE), Dose: IV Fluids, Rate: 1000 mL/hr, Dispensed: 1000 mL bag, Site: #1. Medication Ordered: IV NS : initial bolus 1000 mL (1000 mL/hr), then 1000 mL/hr for X1 (NOW); Earl. Start 17:51 04/10/2017 Arely Berger R.N., Stop 17:52 04/10/2017 Arely Berger R.N. Medication Administered: IV NS (SALINE), Dose: IV Fluids, Rate: 1000 mL/hr, Dispensed: 1000 mL bag, Site: #1. Medication Ordered: IV NS : initial bolus 1000 mL (1000 mL/hr), then 1000 mL/hr for X1 (NOW); Earl. Given 18:22 04/10/2017 Cathy Hinojosa R.N. Medication Administered: REGLAN [IVP] (METOCLOPRAMIDE HCL), Dose: 10 mg IVP over 2 minute(s), Site: #1 right AC. Medication Ordered: Reglan IV 10 mg (NOW). Given 18:23 04/10/2017 Cathy Hinojosa R.N. Medication Administered: ZOFRAN [IVP] (ONDANSETRON HCL), Dose: 8 mg IVP over 4 minute(s), Site: #1 right AC. Medication Ordered: Zofran IV 8 mg (NOW). Given 19:07 04/10/2017 Arely Berger R.N. Medication Administered: MORPHINE [IVP], Dose: 4 mg IVP, Site: #1 right AC. Medication Ordered: Morphine IV 4 mg (HIGH ALERT MEDICATION, NOW). Start 20:02 04/10/2017 Marley Cee R.N., Stop 20:50 04/10/2017 Marley Cee R.N. Medication Administered: IV NS (SALINE), Dose: IV Fluids over 1 hour(s), Rate: 1000 mL/hr, Dispensed: 1000 mL bag, Site: #1 right AC. Medication Ordered: IV NS : initial bolus 1000 mL (1000 mL/hr), then 250 mL/hr for X1 (NOW); Earl. Given 21:16 04/10/2017 Marley Cee R.N. Medication Administered: ATIVAN [IVP] (LORAZEPAM), Dose: 2 mg IVP over 90 second(s), In: NS 10 mL, Site: #1 right AC. Medication Ordered: Ativan IV 2 mg (HIGH ALERT MEDICATION, NOW). Start 22:11 04/10/2017 Marley Cee R.N., Stop 23:10 04/10/2017 Marley Cee R.N. Medication Administered: IV NS (SALINE), Dose: IV Fluids, Rate: 1000 mL/hr, Dispensed: 1000 mL bag, Site: #1 right AC. Medication Ordered: IV NS : initial bolus none -, then 1000 mL/hr (NOW) (Bag #4 NS). Start 00:20 04/11/2017 Marley Cee R.N., Continued Upon Transfer 01:05 04/11/2017 Marley Cee R.N. Medication Administered: IV NS (SALINE), Dose: IV Fluids, Rate: 150 mL/hr, Dispensed: 1000 mL bag, Site: #1 right AC. Medication Ordered: IV NS : initial bolus none -, then 150 mL/hr for X1 (NOW); Earl. Given 00:23 04/11/2017 Marley Cee R.N. Medication Administered: REGLAN [IVP] (METOCLOPRAMIDE HCL), Dose: 10 mg IVP over 3 minute(s), Site: #1 right AC. Medication Ordered: Reglan IV 10 mg (NOW).
--- NOTE | 2017-04-11 01:12 | ED DISCHARGE INSTRUCTIONS ---
Patient: ALANA DIANA General Instructions [facility] VisitID: [id number] [address] [place] [place] [address] 36y, F Registration Date/Time: 04/10/2017 Substance abuse problems: abuse of alcohol. Substance dependence problems: dependence on alcohol. Lactic Acidosis likely secondary to alcoholism Pancreatitis. (Electronically signed by Lucy Grant P.A.-C 04/11/2017 0:12)
--- NOTE | 2017-04-11 01:12 | ED DISCHARGE INSTRUCTIONS ---
Patient: ALANA DIANA General Instructions [facility] VisitID: [id number] [address] [place] [address] 36y, F Registration Date/Time: 04/10/2017 Substance abuse problems: abuse of alcohol. Substance dependence problems: dependence on alcohol. Lactic Acidosis likely secondary to alcoholism Pancreatitis. (Electronically signed by Lucy Grant P.A.-C 04/11/2017 0:12)
--- NOTE | 2017-04-11 01:12 | ED MED RECONCILIATION SUMMARY ---
Patient: ALANA DIANA Medication Reconciliation Report [facility] VisitID: [id number] [place] [address] 36y, F Registration Date/Time: 04/10/2017 Weight: 47.6 kg Height/Length: 63 in. BMI: 18.6 ALLERGIES: Amoxicillin The patient's Home Medications are listed below: NONE. The source(s) of the original Home Medication information: patient The following Medications were given to the patient in the Emergency Department: IV NS IV Fluids bolus 0, then 1000 mL/hr, administered: 04/10/2017 5:51:00 PM Reglan [IVP] IVP 10 mg, administered: 04/10/2017 6:22:00 PM Zofran [IVP] IVP 8 mg, administered: 04/10/2017 6:23:00 PM IV NS IV Fluids bolus 0, then 1000 mL/hr, administered: 04/10/2017 5:51:00 PM Morphine [IVP] IVP 4 mg, administered: 04/10/2017 7:07:00 PM IV NS IV Fluids bolus 0, then 1000 mL/hr, administered: 04/10/2017 8:02:00 PM Ativan [IVP] IVP 2 mg diluted in NS 10 mL, administered: 04/10/2017 9:16:00 PM IV NS IV Fluids bolus 0, then 1000 mL/hr, administered: 04/10/2017 10:11:00 PM IV NS IV Fluids bolus 0, then 150 mL/hr, administered: 04/11/2017 12:20:00 AM Reglan [IVP] IVP 10 mg, administered: 04/11/2017 12:23:00 AM The following Medications were prescribed to the patient: None.
--- NOTE | 2017-04-11 01:12 | ED MED RECONCILIATION SUMMARY ---
Patient: ALANA DIANA Medication Reconciliation Report [facility] VisitID: [id number] [place] [address] 36y, F Registration Date/Time: 04/10/2017 Weight: 47.6 kg Height/Length: 63 in. BMI: 18.6 ALLERGIES: Amoxicillin The patient's Home Medications are listed below: NONE. The source(s) of the original Home Medication information: patient The following Medications were given to the patient in the Emergency Department: IV NS IV Fluids bolus 0, then 1000 mL/hr, administered: 04/10/2017 5:51:00 PM Reglan [IVP] IVP 10 mg, administered: 04/10/2017 6:22:00 PM Zofran [IVP] IVP 8 mg, administered: 04/10/2017 6:23:00 PM IV NS IV Fluids bolus 0, then 1000 mL/hr, administered: 04/10/2017 5:51:00 PM Morphine [IVP] IVP 4 mg, administered: 04/10/2017 7:07:00 PM IV NS IV Fluids bolus 0, then 1000 mL/hr, administered: 04/10/2017 8:02:00 PM Ativan [IVP] IVP 2 mg diluted in NS 10 mL, administered: 04/10/2017 9:16:00 PM IV NS IV Fluids bolus 0, then 1000 mL/hr, administered: 04/10/2017 10:11:00 PM IV NS IV Fluids bolus 0, then 150 mL/hr, administered: 04/11/2017 12:20:00 AM Reglan [IVP] IVP 10 mg, administered: 04/11/2017 12:23:00 AM The following Medications were prescribed to the patient: None.
== END 2017-04-11 01:12 | disposition short-term general hospital (02) ==
LOC: ED SRH 17:39
DX: K85.90 Acute pancreatitis without necrosis or infection, unspecified (principal); E87.2 Acidosis; F10.20 Alcohol dependence, uncomplicated; Z88.0 Allergy status to penicillin; K76.0 Fatty (change of) liver, not elsewhere classified
CPT/HCPCS: 90004; 90074; 90100; 90301; 90469; 90616; 92010; 92031; 92235; 92610; 92720; 92760; 92761; 92762; 92763; 92764; 92765; 92766; 92767; 92855; 93070; 94001; 94060; 95059